=== PATIENT | male | born 1955 | race Caucasian/White ===

== ENCOUNTER 2019-11-25 12:53 | Emergency (ER) | payer BC, SELFPAY ==
--- NOTE | ~2019-11-25 | XR_ITS ---
XR chest 1V portable 11/25/2019 13:45 Indication: Chest pain. STEMI. Procedure: AP portable chest Comparison: 07/26/2015 Findings: Chronic elevation of the right diaphragm with right basilar atelectasis. Cardiomegaly. No a cute focal pneumonia, pulmonary edema, pleural effusion or pneumothorax. No acute osseous abnormality . Impression: 1: Cardiomegaly. 2: Chronic elevation of the right diaphragm with right basilar atelectasis. The Reviewed, dictated and finalized at location A. Impression: 1: Cardiomegaly. 2: Chronic elevation of the right diaphragm with right basilar atelectasis. sonia
--- NOTE | 2019-11-25 12:55 | ECG_ITS ---
Measurements Intervals [place] Rate: 50 P: 50 [place]: 208 QRS: 83 QRSD: 122 T: 4 QT: 465 QTc: 424 Interpretive Statements SINUS BRADYCARDIA INTRAVENTRICULAR CONDUCTION DELAY ST-T WAVE ABNORMALITY IN INFERIOR LEADS- CONSIDER ISCHEMIA ABNORMAL ECG Electronically Signed On 11-25-2019 18:12:55 CDT by Ari Gilliam D.O.
[2019-11-25 13:02] VITALS: BP 128/65; PULSE 58; RESP 20; TEMP 37; O2SAT 95
--- NOTE | 2019-11-25 13:05 | ECG_ITS ---
Measurements Intervals [place] Rate: 63 P: 40 [place]: 185 QRS: 104 QRSD: 118 T: 8 QT: 428 QTc: 439 Interpretive Statements ALTERNATE LEAD PLACEMENT: Posterior V1: V7, V2: V8, V3: V9, V4: V4, V5: V5, V6: V6 SINUS RHYTHM BORDERLINE AV CONDUCTION DELAY HIGH LATERAL ST ELEVATION- CONSIDER ACUTE INJURY RECIPROCAL ST DEPRESSION IN INFERIOR LEADS ABNORMAL ECG Electronically Signed On 11-25-2019 18:26:44 CDT by Ari Gilliam D.O.
--- NOTE | 2019-11-25 13:05 | ED.CHESTPAIN ---
HPI - Chest Pain General Chief Complaint: Chest Pain Stated Complaint: chest pain Time Seen by Provider: 11/25/19 13:04 Source: patient Mode of arrival: ambulatory Limitations: no limitations History of Present Illness HPI narrative: Patient is a 65-year-old gentleman with a history of hypertension who presents for evaluation of chest pain. 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 Patient returned home, chest pain persisted, patient generally started to feel very unwell, thus drove himself to the emergency department. No history of pain such as this in the past. Patient reports some left-sided chest pain, radiation to the shoulder, associated nausea, diaphoresis and weakness. No history of heart attack. Patient former smoker over 20 years ago. He has been compliant with his antihypertensives. He had a stress test many years ago which was normal. He denies fever, chills, cough or shortness of breath. No recent long car or air travel. Related Data Allergies Allergy/AdvReac Type Severity Reaction Status Date / Time sulfamethoxazole Allergy Severe FEVER & Verified 11/25/19 13:05 [place] trimethoprim Allergy Severe FEVER & Verified 11/25/19 13:05 CHILLS Review of Systems Review of Systems: Narrative: CONSTITUTIONAL: Denies fever, chills, or sweats. EYES: Denies visual changes, redness, or discharge. ENT: Denies rhinorrhea, congestion, sore throat, or otalgia. CARDIOVASCULAR: Reports chest pain RESPIRATORY: Denies cough or dyspnea. GASTROINTESTINAL: Denies abdominal pain, reports nausea GENITOURINARY: Denies dysuria or hematuria. SKIN: Denies rash or itching. MUSCULOSKELETAL: Denies back pain, joint pain, or myalgia. NEUROLOGIC: Denies headache, numbness, or weakness. [facility] Past Medical History Medical History (Updated 11/25/19 @ 14:32 by Janet Dai MD) Bilateral hydrocele Bilateral varicoceles Eczematous dermatitis Essential (primary) hypertension Rash Rash Surgical History Surgical History (Updated 03/01/19 @ 13:06 by Victorino Joe MD) Status post hip replacement Family History Family History Father Hypertension Mother Family history of diabetes mellitus in first degree relative Social History Social History Smoking status: Former smoker Smoking end date: 02/16/92 Alcohol intake: never Substance use: never Substance use type: does not use Gender identity (if verbalized by the patient): Male Exam Narrative: Exam Narrative: GENERAL: Awake, alert, conversant, uncomfortable appearing, mildly diaphoretic HEAD: Normocephalic, atraumatic. EYES: PERRLA and EOMI. ENT: Nares clear, no rhinorrhea or epistaxis. Mucous membranes moist. NECK: Supple. CHEST: No respiratory distress, breathing even and non labored HEART: Regular rate, sinus rhythm ABDOMEN:Non distended, non tender EXTREMITIES: Normal range of motion. No edema. No calf tenderness. SKIN: Pale, warm, no rash NEURO:No focal deficits. Alert and oriented x3 Course Vital Signs Vital signs: Vital Signs Temperature 37.0 C 11/25/19 13:02 Pulse Rate 58 L 11/25/19 13:02 Respiratory Rate 20 11/25/19 13:02 Blood Pressure 128/65 11/25/19 13:02 Pulse Oximetry 95 11/25/19 13:02 Temperature 36.7 C 11/25/19 13:40 Pulse Rate 68 11/25/19 14:24 Respiratory Rate 18 11/25/19 14:24 Blood Pressure 120/80 11/25/19 14:24 Pulse Oximetry 99 11/25/19 14:24 Transfer Transfered to: [facility] Transportation: Air medical Transfer rationale: Capacity not available, STEMI Accepting physician: MD DARREN MDM - Chest Pain MDM Narrative Medical decision making narrative: Patient presented for evaluation of chest pain. Patient was triaged, EKG performed patient found to have a posterior STEMI. Cardiology was present at
[2019-11-25] MEDS: ASPIRIN 81 MG CHEWABLE TABLET 324 MG PO (13:13)
[2019-11-25] MEDS: ONDANSETRON INJ 4 MG/2 ML VIAL IV PUSH (13:19)
[2019-11-25] MEDS: MORPHINE SULFATE (*CRX) 4 MG/ML INJ IV PUSH (13:19)
[2019-11-25 13:25] LABS: Basophils Absolute Auto 0.1 K/mm3 (0.0-0.1); Basophils Percent Auto 0.5 % (0.2-1.2); Eosinophils Absolute Auto 0.1 K/mm3 (0-0.3); Eosinophils Percent Auto 0.5 % (0-4.4); Hematocrit 46.7 % (42.0-52.0); Hemoglobin 15.7 g/dL (14.0-18.0); Immature Granulocyte Absolute 0.17 K/mm3 (0.00-0.031); Immature Granulocyte Percent A 1.3 % (0-0.5); Lymphocytes Absolute Auto 1.62 K/mm3 (0.9-3.2); Lymphocytes Percent Auto 12.2 % (18.3-44.2); Mean Corpuscular HGB Conc 33.6 g/dl (32-36); Mean Corpuscular Hemoglobin 30.7 pg (26-34); Mean Corpuscular Volume 91.4 fl (80-100); Monocytes Absolute Auto 1.1 K/mm3 (0.1-0.6); Monocytes Percent Auto 8.1 % (2.6-8.5); Neutrophils Absolute Auto 10.2 K/mm3 (1.3-6.7); Neutrophils Percent Auto 77.4 % (45.5-73.1); Platelet Count Result 221 k/mm3 (150-375); Red Blood Count 5.11 M/mm3 (4.6-6.20); White Blood Count 13.2 K/mm3 (4.5-10.0)
[2019-11-25 13:28] VITALS: O2SAT 94
[2019-11-25 13:31] VITALS: BP 109/58; PULSE 62; RESP 18; O2SAT 95
--- NOTE | 2019-11-25 13:35 | PC.NURSE ---
pt received 0.4mg nitro at 1310 for 8/10 cp, another 0.4mg nitro at 1315 for 5/10 cp, another 0.4mg nitro tab at 1320 for 5/10 cp. Bp 109/58 after 3rd nitro
[2019-11-25 13:37] LABS: Anion Gap 12 mmol/L (8-16); Blood Urea Nitrogen 31 mg/dL (9-20); Calcium 10.2 mg/dL (8.4-10.2); Carbon Dioxide 32 mmol/L (22-30); Chloride 98 mmol/L (98-107); Estimated Glomerular Filt Rate > 60; Glucose 131 mg/dL (75-110); Potassium 3.9 mmol/L (3.4-5.0); Sodium 142 mmol/L (137-145)
[2019-11-25 13:39] LABS: Prothrombin Time 12.7 Seconds (11.1-14.7)
[2019-11-25 13:40] VITALS: BP 117/63; PULSE 60; RESP 18; TEMP 36.7; O2SAT 97
[2019-11-25 13:40] LABS: Partial Thromboplastin Time 20.3 SECONDS (22.3-36.8)
--- NOTE | 2019-11-25 13:54 | ECG_ITS ---
Measurements Intervals [place] Rate: 61 P: 41 [place]: 184 QRS: 99 QRSD: 114 T: 16 QT: 436 QTc: 441 Interpretive Statements ALTERNATE LEAD PLACEMENT: Posterior V1: V7, V2: V8, V3: V9, V4: V4, V5: V5, V6: V6 SINUS RHYTHM ATRIAL AND VENTRICULAR PREMATURE COMPLEXES BORDERLINE AV CONDUCTION DELAY HIGH LATERAL ST ELEVATION- CONSIDER ACUTE INJRY RECIPROCAL ST DEPRESSION IN INFERIOR LEADS BASELINE ARTIFACT- I, II, AVR, AVL ABNORMAL ECG Electronically Signed On 11-25-2019 18:28:06 CDT by Ari Gilliam D.O.
[2019-11-25 14:03] LABS: NT Pro B Type Natriuretic Pept 98 PG/ML (5-100); Troponin I 0.073 ng/mL (0.000-0.034)
[2019-11-25 14:24] VITALS: BP 120/80; PULSE 68; RESP 18; O2SAT 99
== END 2019-11-25 14:30 | disposition short-term general hospital (02) ==
LOC: ANHED 13:34 → ANHICU 13:54 → ANHED 14:05
PROVIDERS: Emergency Provider Emergency Medicine; PCP Family Medicine
DX: I21.29 ST elevation (STEMI) myocardial infarction involving other sites (principal); I10 Essential (primary) hypertension; Z96.649 Presence of unspecified artificial hip joint; Z87.891 Personal history of nicotine dependence; I51.7 Cardiomegaly
CPT/HCPCS: 36415; 71045; 80048; 83880; 84484; 85025; 85610; 85730; 93005; 96374; 96375; 99291; A9270; J2250; J2270; J2405; J3010

== ENCOUNTER 2020-05-03 08:11 | Outpatient (CLI) | payer BC, SELFPAY | END 2020-05-03 08:12 | disposition home or self-care (01) | LOC: ANHCOVIDVC 08:11 | PROVIDERS: PCP Family Medicine | DX: Z23 Encounter for immunization (principal) | CPT/HCPCS: 0001A; 91300 ==

== ENCOUNTER 2020-05-24 08:04 | Outpatient (CLI) | payer BC, SELFPAY | END 2020-05-24 08:05 | disposition home or self-care (01) | LOC: ANHCOVIDVC 08:05 | PROVIDERS: PCP Family Medicine | DX: Z23 Encounter for immunization (principal) | CPT/HCPCS: 0002A; 91300 ==

== ENCOUNTER 2021-04-24 07:47 | Outpatient (CLI) | payer BC, SELFPAY ==
--- NOTE | 2021-04-30 15:39 | WPDSLEEPSTUD ---
Sleep Study Date of Study: 04/24/21 Ordering Provider: Alejandro Rojas, Interpreting Physician: Maryuri Velarde MD Sleep Study Type: CPAP Titration Height: 1.78 m Weight: 136.078 kg Body Mass Index: 43.0 Neck Circumference (inches): 19.5 [place]: 8 Reason for Sleep Study * 03/10/2021 home sleep test ordered through Dr Duncan showing mild obstructive sleep apnea with an apnea hypop[nadine indexof 6.2, lowest desaturation 87%, and a mean saturation of 92%. Sleep History Jassi Camacho is a 66 year old man with mild obstructive sleep apnea documented on a home sleep test March 10, 2021. He now presents for a CPAP titration. he does not awaken at night feeling short of breath. He rarely awakens at night with heartburn, belching or coughing. He occasionally snores. Occasionally this is loud enough that others complain about it. He does not have trouble sleeping with a cold. He does not wake up at night gasping for breath. He occasionally has breathing problems at night observed by others. He does not sweat excessively at night or notice his heart pounding or beating irregularly at night. he rarely falls asleep during the day, never involuntarily and never while driving. He does not have loss of muscle tone with strong emotion. He does not have daytime difficulties due to excessive sleepiness. He does not feel paralyzed on waking or falling asleep. He does not have vivid dream like scenes upon awakening or falling asleep. He does not feel afraid to go to sleep. He does not have nightmares. He rarely remembers his dreams. He does not have racing thoughts, feelings of sadness or depression. He rarely has anxiety. He rarely has muscular tension. He does not notice parts of his body jerking. He does not kick at night. He does not have crawling or aching feelings in his legs. He occasionally has leg pain at night. He does not have morning jaw pain. He does not grind his teeth during sleep. He rarely is bothered by pain during the day. He occasionally is awakened by pain at night, occasionally wakes up feeling stiff in the morning with sore achy muscles. He rarely wakes up with pain in the neck and spine. Normal bedtime is 7:30 p.m. taking 10 minutes to fall asleep waking 3-4 times at night to urinate. He is able to return to sleep within 5-10 minutes. His normal wake up time is 3:45 a.m.. On the weekends he also goes to bed at 7:30 p.m., wakes later at 5:30 a.m.. He does not take naps. A short nap is not refreshing. He feels adequately rested most mornings. He never has morning headaches. He rarely has daytime sleepiness. Habits: Caffeine 1 cup per day. [facility] Past Medical History Medical History Bilateral hydrocele Bilateral varicoceles CAD (coronary artery disease) Eczematous dermatitis Essential (primary) hypertension Hypertension with heart disease [place] (myocardial infarction) Rash Rash Surgical History Surgical History S/P coronary artery stent placement Status post hip replacement Family History Family History Father Hypertension Mother Family history of diabetes mellitus in first degree relative Social History Social History Smoking status: Former smoker Tobacco type: cigarettes Second hand tobacco smoke exposure: No Smoking end date: 02/16/92 Alcohol intake: never Substance use: never Substance use type: does not use Gender identity (if verbalized by the patient): Male Sexual Orientation (if Verbalized by the Patient): Straight or Heterosexual Medications Home Medications Medication Instructions Recorded Confirmed Type aspirin 81 mg tablet,delayed 81 mg PO DAILY 04/09/20 04/14/21 History release fluticasone propionate 50 1 spray INTRANASAL BID 04/09
[2021-04-30 16:56] VITALS: BMI 43.0
== END 2021-04-25 05:37 | disposition home or self-care (01) ==
LOC: ANHCSM 07:48
PROVIDERS: PCP Family Medicine; Visit Provider Internal Medicine Cardiovascular Disease
DX: G47.33 Obstructive sleep apnea (adult) (pediatric) (principal)
CPT/HCPCS: 95811

== ENCOUNTER 2022-05-08 07:12 | Outpatient (CLI) | payer BC, SELFPAY ==
--- NOTE | ~2022-05-08 | US_ITS ---
Limited Abdominal Sonogram: Real-time sonographic imaging of the right upper quadrant was performed. Clinical History: Abdominal pain Findings: The visualized liver appears normal with no evidence of mass lesion or bile duct dilatatio n. Main portal vein demonstrates normal direction of flow. The gallbladder is well distended, and linda ears normal with no evidence of gallstone or wall thickening. The common bile duct measures 5 mm. Th e visualized pancreas, aorta, and IVC are unremarkable. Impression: No significant abnormality seen. There is partial obscuration of portions of the liver and other orga ns due to patient body habitus. Reviewed, dictated and finalized at location M. Impression: No significant abnormality seen. There is partial obscuration of portions of th e liver and other organs due to patient body habitus.
== END 2022-05-08 07:13 | disposition home or self-care (01) ==
PROVIDERS: PCP Family Medicine; Visit Provider Physician Assistant
DX: R10.9 Unspecified abdominal pain (principal)
CPT/HCPCS: 76705

== ENCOUNTER 2022-05-15 07:02 | Outpatient (CLI) | payer BC, SELFPAY ==
--- NOTE | ~2022-05-15 | NM_ITS ---
EXAMINATION: NM hepatobiliary wo pharm DATE: 05/15/2022 10:19 INDICATION: Right upper quadrant abdominal pain. COMPARISON: Ultrasound 05/08/2022 TECHNIQUE: 5 mCi Tc-99m mebrofenin (Choletec) was administered intravenously. Scintigraphic images o f the abdomen were obtained for one hour. Then, the patient drank 8 oz Ensure, and imaging was contin ued for 60 minutes. FINDINGS: There is normal clearance of radiotracer from the blood pool. There is homogeneous tracer u ptake by the liver. Activity progresses to the bowel and gallbladder. Gallbladder ejection fraction (GBEF) was 32%. Note that with this technique, normal GBEF >= 33%. IMPRESSION: 1. Low gallbladder ejection fraction, consistent with gallbladder dysfunction and/or chronic cholecy stitis. Reviewed, dictated and finalized at location A. IMPRESSION: 1. Low gallbladder ejection fraction, consistent with gallbladder dysfunction and/or chronic cholecystitis.
== END 2022-05-15 07:03 | disposition home or self-care (01) ==
PROVIDERS: PCP Family Medicine; Visit Provider Physician Assistant
DX: R10.11 Right upper quadrant pain (principal)
CPT/HCPCS: 78226; A9537

== ENCOUNTER 2022-06-08 08:09 | Outpatient (CLI) | payer BC, SELFPAY | END 2022-06-08 08:10 | disposition home or self-care (01) | LOC: ANHSURGERY 08:15 | PROVIDERS: PCP Family Medicine; Visit Provider Surgery | DX: Z01.818 Encounter for other preprocedural examination (principal); K81.1 Chronic cholecystitis | CPT/HCPCS: 36415; 86850; 86900; 86901 ==

== ENCOUNTER 2022-06-12 01:09 | Day surgery (SDC) | payer BC, SELFPAY ==
[2022-06-05 08:32] VITALS: BMI 42.5
--- NOTE | 2022-06-05 08:45 | PC.NURSE ---
PRE-OP INSTRUCTIONS, PLEASE READ CAREFULLY Report to the Outpatient Waiting Room, entrance under the green pavilion located off [facility], at time _1000_ on date _06/12/22_. Planned Procedure Time: _1200_. Time changes happen often and if your time is changed the preop area will call you the afternoon before. - You and your visitor will be asked to self-screen and do not enter if you have any COVID symptoms. - A mask is optional within the hospital at this time. Patients may have clear liquids (water, carbonated beverages, clear teas, apple juice) until 3 hours prior to surgery (0900 AM) with a maximum of 20 ounces. - No food from midnight until time of surgery Take the following medications with a SIP of water the morning of surgery: _CARVEDILOL, NASAL SPRAY IF NEEDED _ DO NOT STOP ANY OF YOUR OTHER PRESCRIPTION MEDICATIONS PRIOR TO SURGERY ?EXCEPT THE FOLLOWING Medications to discontinue per DR. KAYE - _XARELTO 4 DAYS PRIOR TO SURGERY, Date to take last dose 06/07/22_ Please no make-up, nail montenegrin, hairspray, perfume, deodorant, or body powder the day of surgery. No jewelry (including any body piercings) or valuables the day of surgery, leave them at home. Please take a shower or bath the night before, or the morning of, surgery with an antibacterial soap. Wear comfortable, loose fitting clothing. - Jewelry must be removed prior to entering the operating room. Rings and piercings that are not removed may be cut off. - The hospital will not accept responsibility for valuables. - Please leave all valuables, including medications, at home the day of surgery. If you are going home after surgery, a licensed experienced truck driver must drive you home. - NO public transportation without another adult if you receive anesthesia. - We recommend that an adult stay with you for 24 hours following discharge. - We also recommend that you do not drive, make important decision, drink alcoholic beverages, or take any drugs that were not prescribed by your health care provider for at least 24 hours after your discharge time. Follow any additional instructions given to you from your surgeon. HIBICLENS SHOWER AM OF SURGERY If you or anyone in your household have experienced Covid symptoms in the past week, please notify your surgeon or the nurse liaison at the phone number below for possible testing. Telephone instructions given to _PATIENT_and asked if any additional questions and then verbalized understanding. Patient advised to call surgeon office or pre surgery nurse liaison [phone] if any additional questions.
[2022-06-12] VITALS (8 sets, daily range): BP systolic 92–134; BP diastolic 52–84; PULSE 69–110; RESP 15–26; TEMP 36.3; O2SAT 93–97; BMI 42.3
[2022-06-12] MEDS: ACETAMINOPHEN 500 MG TABLET 1000 MG PO (10:45)
[2022-06-12] MEDS: KETOROLAC 15 MG/ML VIAL (*BKC) IV PUSH (10:47)
--- NOTE | 2022-06-12 10:58 | WPDHPUPDATE1 ---
History and Physical Update Update Date/Time: 06/12/22 10:58 History and Physical has been reviewed, including an updated exam of the patient. There are NO changes in the patient's condition. Risks, benefits, and alternatives have been discussed and questions answered. Patient agrees to proceed with procedure.
[2022-06-12 11:15] LABS: Glucose Point of Care 81 mg/dl (65-105)
[2022-06-12] MEDS: LACTATED RINGERS 1,000 ML 30 ML IV CONT ×2 (11:55→13:33)
--- NOTE | 2022-06-12 11:55 | WPDANESEPPF ---
Anes - Initial Pre Proc Eval Procedure: Operation Date: 06/12/22 12:00 Proposed Procedures p Laparoscopic Cholecystectomy - Carolynn Barrera MD Date/Time: 06/12/22 11:55 Surgeon: Carolynn Barrear MD Pre Op Diagnosis: Chronic cholecystitis Patient Data Age: 67 Gender: M Height: 1.78 m Weight: 133.8 kg Last Vital Signs Temp 36.3 C L 06/12/22 09:48 Pulse 69 06/12/22 09:48 Resp 15 06/12/22 09:48 BP 115/56 L 06/12/22 09:48 Pulse Ox 97 06/12/22 09:48 O2 Del Method Room Air 06/12/22 09:48 Allergies Allergy/AdvReac Type Severity Reaction Status Date / Time sulfamethoxazole Allergy Severe FEVER & Verified 06/12/22 10:14 [place] trimethoprim Allergy Severe FEVER & Verified 06/12/22 10:14 [place]ILLS Home Medications Medication Instructions Recorded Confirmed Type aspirin 81 mg tablet,delayed 81 mg PO DAILY 04/09/20 06/05/22 History release fluticasone propionate 50 1 spray intranasal BID 04/09/20 06/05/22 History mcg/actuation nasal spray,suspension nitroglycerin 0.4 mg sublingual 0.4 mg sublingual Q5M PRN Chest 04/09/20 06/05/22 History tablet Pain semaglutide 1 mg/dose (2 mg/1.5 1 mg subcut WEEKLY 04/09/20 06/05/22 History mL) subcutaneous pen injector chlorthalidone 25 mg tablet See Rx Instructions .Route 10/07/20 06/05/22 Rx .COMPLEX #30 tabs bempedoic acid 180 mg tablet 180 mg PO DAILY #30 tabs 12/26/20 06/05/22 Rx (Nexletol) carboxymethylcellulose-citric acid 3 cap PO BID #180 caps 12/26/20 06/05/22 Rx 0.75 gram capsule (Plenity) carvedilol 25 mg tablet (Coreg) 25 mg PO Q12H #60 tabs 12/26/20 06/05/22 Rx rivaroxaban 2.5 mg tablet (Xarelto) 2.5 mg PO BID #60 tabs 12/26/20 06/12/22 Rx tamsulosin 0.4 mg capsule See Rx Instructions .Route 06/18/21 06/05/22 Rx .COMPLEX #180 caps Laboratory Tests 06/12/22 10:40 POC Capillary Glucose 81 mg/dl (65-105) Patient hx anesthesia problems: none Family hx anesthesia problems: none Results Review: All pre-operative results and documents have been reviewed as part of the pre-operative evaluation. [facility] Past Medical History Medical History Bilateral hydrocele Bilateral varicoceles CAD (coronary artery disease) Eczematous dermatitis Essential (primary) hypertension Hypertension with heart disease [place] (myocardial infarction) Rash Rash Surgical History Surgical History S/P coronary artery stent placement Status post hip replacement Family History Family History Father Hypertension Mother Family history of diabetes mellitus in first degree relative Unknown Diabetes mellitus Heart disease Hypertension Social History Social History Smoking packs per day: 2 Smoking cigarettes per day: 40.0 Years smoked: 23 Smoking pack-years: 46.00 Smoking status: Former smoker Tobacco type: cigarettes Second hand tobacco smoke exposure: No Smoking end date: 02/15/95 Alcohol intake: former Alcohol use details: STATES DRANK SOCIALLY QUIT 1995 Substance use: never Substance use type: does not use Living arrangements: other Additional living arrangements comments: LIVES WITH SIGNIFICANT OTHER Occupation/Education: occupation Gender identity (if verbalized by the patient): Male Sexual Orientation (if Verbalized by the Patient): Straight or Heterosexual Spiritual care concerns: No Anes - Eval Final PreProcedure Day of Procedure 06/12/22 11:55 Patient weight: morbidly obese Heart: regular rate and rhythm Lungs: decreased breath sounds Airway: Mallampati scale class III Neurological: alert and oriented Last oral intake: >/= 8 hours ASA classification: III Emergent: no Anesthetic plan: proceed Anesthesia type and rylan
[2022-06-12] MEDS: ceFAZolin 3 GM/D5W 100 ML 100 ML IVPB (12:14)
[2022-06-12] MEDS: BUPIVACAINE/EPINEPHRINE 0.25% 10 ML VIAL 30 ML INFILTRATE (12:54)
--- NOTE | 2022-06-12 13:00 | W.PM.PROC2 ---
Procedure Note - Detailed Date of Procedure 06/12/22 Pre-op Diagnosis Chronic cholecystitis Post-op Diagnosis Same Procedure Performed Laparoscopic cholecystectomy Surgeon Carolynn Barrera MD Anesthesia General Indications 67-year-old male presented to the office complaining of postprandial right upper quadrant abdominal pain associated with nausea and vomiting. Workup including imaging significant for chronic cholecystitis. Findings Cholecystitis with cholelithiasis Description of Procedure The patient was taken to the operating room placed in the supine position. After adequate induction of general anesthesia, the patient was prepped and draped in normal sterile fashion. A time-out was then performed to verify the patient's identity as well as the procedure being performed. I then made a 5 mm incision in the infraumbilical region. Through this, a Veress needle was placed into the peritoneal cavity and CO2 gas was then insufflated. After adequate pneumoperitoneum was achieved, the Veress needle was removed and a 5 mm optiview trocar was placed through this incision under direct visualization. I then placed the laparoscope through this trocar site and under direct visualization placed a further 12 mm subxiphoid port as well as 2 additional 5 mm ports in the right upper abdomen. The gallbladder was then identified and was noted to be moderately inflamed and distended. I was able to place a grasper at the dome of the gallbladder and this was retracted anterior and cephalad up over the liver. A 2nd retractor was then placed at the infundibulum and retracted laterally, this allowed visualization of the triangle of Calot. I then was able to visualize the cystic duct in its entirety from its proximal insertion into the gallbladder, to its distal junction with the common hepatic/common bile duct junction. At this point, I carefully skeletonized the proximal cystic duct with the [place] dissector. I then clipped and transected the proximal cystic duct. Next I visualized the cystic artery. Again the artery was skeletonized, clipped, and transected. I then used the Bovie cautery to take down the peritoneal attachments of the gallbladder off the liver bed. Once the gallbladder specimen was completely detached, an endo-pouch was placed through the 12 mm port site. I then placed the gallbladder specimen into the Endo pouch and removed the endo-pouch from the 12 mm port site. The specimen will now be sent to pathology for further review. I then copiously irrigated the right upper quadrant. Hemostasis was noted in the liver bed, the clips were noted to be in good position on both the cystic duct stump and the cystic artery stump. No other pathology was noted in the right upper quadrant. I then moved the laparoscope to the subxiphoid port. No iatrogenic injury or other pathology was noted in the lower abdomen. I then closed the 12 mm trocar site under direct visualization using the [place] cone and 0 Vicryl suture. At this point, the abdomen was desufflated and all ports removed. All port sites were then closed with 4.O Monocryl subcuticular sutures. Dermabond was placed on each incision. The patient tolerated the procedure well, was extubated in the operating room postoperative and will be transferred to the recovery room in stable condition Estimated Blood Loss 5 Drains No Packing No Pathology Yes Complications No immediate complications Condition Stable Disposition PACU [facility] Billing Surgery - Charge Forward: Surgery Billing
[2022-06-12 13:16] LABS: Glucose Point of Care 114 mg/dl (65-105)
[2022-06-12] MEDS: oxyCODONE HCL (*CRX) 5 MG TAB IR PO (14:26)
== END 2022-06-12 15:19 | disposition home or self-care (01) ==
PROVIDERS: PCP Family Medicine; Visit Provider Surgery
PROC: 0FT44ZZ Resection of Gallbladder, Percutaneous Endoscopic Approach (ICD-10-PCS; CPT 47562; principal; 2022-06-12 12:00)
DX: K81.1 Chronic cholecystitis (principal); I25.10 Atherosclerotic heart disease of native coronary artery without angina pectoris; I11.9 Hypertensive heart disease without heart failure; I25.2 Old myocardial infarction; Z79.82 Long term (current) use of aspirin; Z79.899 Other long term (current) drug therapy; Z79.01 Long term (current) use of anticoagulants; Z95.5 Presence of coronary angioplasty implant and graft; Z87.891 Personal history of nicotine dependence; E66.01 Morbid (severe) obesity due to excess calories; Z68.41 Body mass index [BMI] 40.0-44.9, adult
CPT/HCPCS: 47562; 82948; 88304; A9270; J0330; J0690; J1100; J1885; J2250; J2405; J2704; J3010; J7030; J7120

== ENCOUNTER 2023-10-22 09:49 | Outpatient (CLI) | payer BC, SELFPAY ==
--- NOTE | 2023-10-22 10:53 | ECG_ITS ---
Test Date: 2023-10-22 11:17:44 Measurements Intervals [place] Rate: 57 P: -31 MA: 203 QRS: 175 QRSD: 161 T: 30 QT: 470 QTc: 461 Interpretive Statements SINUS BRADYCARDIA RIGHT AXIS DEVIATION RIGHT BUNDLE BRANCH BLOCK ABNORMAL ECG No previous ECG available for comparison Electronically Signed On 10-22-2023 11:42:48 CDT by Ari Gilliam D.O.
[2023-10-22 12:01] LABS: Basophils Absolute Auto 0.1 K/mm3 (0.0-0.1); Basophils Percent Auto 0.6 % (0.2-1.2); Eosinophils Absolute Auto 0.2 K/mm3 (0-0.3); Eosinophils Percent Auto 1.5 % (0-4.4); Hematocrit 48.4 % (42.0-52.0); Immature Granulocyte Absolute 0.06 K/mm3 (0.00-0.031); Immature Granulocyte Percent A 0.6 % (0-0.5); Lymphocytes Absolute Auto 1.56 K/mm3 (0.9-3.2); Lymphocytes Percent Auto 15.5 % (18.3-44.2); Mean Corpuscular HGB Conc 33.1 g/dl (32-36); Mean Corpuscular Hemoglobin 30.8 pg (26-34); Mean Corpuscular Volume 93.1 fl (80-100); Mean Platelet Volume 10.5 fl (7.4-10.4); Monocytes Absolute Auto 0.9 K/mm3 (0.1-0.6); Monocytes Percent Auto 9.1 % (2.6-8.5); Neutrophils Absolute Auto 7.3 K/mm3 (1.3-6.7); Neutrophils Percent Auto 72.7 % (45.5-73.1); Platelet Count Result 191 k/mm3 (150-375); Red Cell Distribution Width 13.6 % (11.5-14.5); White Blood Count 10.1 K/mm3 (4.5-10.0)
[2023-10-22 12:10] LABS: Hemoglobin A1C 5.3 % (<5.7)
[2023-10-22 12:12] LABS: Urine Cotinine NEGATIVE
[2023-10-22 12:15] LABS: Anion Gap 7 mmol/L (4-12); Blood Urea Nitrogen 20 mg/dL (9-20); Carbon Dioxide 28 mmol/L (22-30); Chloride 100 mmol/L (98-107); Estimated Glomerular Filt Rate > 60; Glucose 99 mg/dL (65-110); Potassium 4.7 mmol/L (3.4-5.0); Sodium 135 mmol/L (137-145)
== END 2023-10-22 09:50 | disposition home or self-care (01) ==
PROVIDERS: PCP Family Medicine; Visit Provider Orthopaedic Surgery
DX: Z01.818 Encounter for other preprocedural examination (principal); M17.11 Unilateral primary osteoarthritis, right knee; R00.1 Bradycardia, unspecified; I45.19 Other right bundle-branch block
CPT/HCPCS: 80048; 80307; 82040; 83036; 85025; 87081; 93005

== ENCOUNTER 2023-11-11 00:49 | Day surgery (SDC) | payer BC, SELFPAY ==
[2023-10-22 10:03] VITALS: BMI 38.6
--- NOTE | 2023-10-22 10:38 | PC.NURSE ---
Report to the Outpatient Waiting Room, entrance under the green pavilion located off [facility], at time _6AM on date _11/11/23 . Planned Procedure Time: _7:30 AM .? Time changes happen often and if your time is changed the preop area will call you the afternoon before. - You and your visitor will be asked to self-screen and do not enter if you have any COVID symptoms. Please call surgeon if you need to reschedule. - A mask is optional within the hospital at this time. Patients may have clear liquids (water, carbonated beverages, clear teas, apple juice) until 3 hours prior to surgery( 4:30 AM) with a maximum of 20 ounces. - No food from midnight until time of surgery and no smoking - Infants may have breast milk until 4 hours before surgery, formula 6 hours prior to surgery. - Children will be allowed to drink immediately following surgery.? If applicable, please bring a bottle or sippy cup to assist with drinking. Juice, water, soda, and popsicles are readily available.? For infants on formula, please bring formula the day of surgery.? Pacifiers are allowed. Take only the following medications with a SIP of water on the morning of surgery: _NONE DO NOT STOP ANY OF YOUR OTHER PRESCRIPTION MEDICATIONS PRIOR TO SURGERY EXCEPT THE FOLLOWING Medications to discontinue per physician _HOLD XARELTO 2 DAYS PRE OP PER DR KAYE LAST DOSE 11/08/23. CONTINUE [address] KAYE/MARLIN BUT DO NOT TAKE MORNING OF SURGERY,HOLD ALEVE 7 DAYS PRE OP PER DR ISAAC LAST DOSE 11/03/23 MAY TAKE TYLENOL IF NEEDED FOR PAIN Please no make-up, nail macedonian, hairspray, perfume, deodorant, or body powder the day of surgery.? No jewelry (including any body piercings) or valuables the day of surgery, leave them at home.? Please take a shower or bath the night before, or the morning of, surgery with an antibacterial soap.? Wear comfortable, loose fitting clothing.? Children are encouraged to wear pajamas. - Jewelry must be removed prior to entering the operating room.? Rings and piercings that are not removed may be cut off. - The hospital will not accept responsibility for valuables.? - Please leave all valuables, including medications, at home the day of surgery. If you are going home after surgery, a licensed boat driver must drive you home.? - NO public transportation without another adult if you receive anesthesia. - We recommend that an adult stay with you for 24 hours following discharge. - We also recommend that you do not drive, make important decision, drink alcoholic beverages, or take any drugs that were not prescribed by your health care provider for at least 24 hours after your discharge time. For Pediatric surgeries, we recommend two adults accompany the child home. Follow any additional instructions given to you from your surgeon. VERBAL AND WRITTEN instructions given to __PT AND SO GERALD and asked if any additional questions and then verbalized understanding. Patient advised to call surgeon office or pre surgery nurse liaison [phone] if any additional questions.
[2023-10-22 10:54] VITALS: BP 116/71; PULSE 60; RESP 18; TEMP 37.1; O2SAT 97
--- NOTE | 2023-11-10 12:33 | PM.IMHP ---
H&P: HPI History of Present Illness Date/Time: 11/10/23 12:33 Chief Complaint: DJD right knee Narrative: 68-year-old male presents today for right total knee arthroplasty. He has been having symptoms in both of his knees for many years. He has been treating this with cortisone injections every 3 months. Patient is on Xarelto chronically and not a candidate for anti-inflammatories. He has been working hard for last 6-8 months to get his weight down so that his BMI is under 40 so that surgery can be offered to him. He has moderately severe medial compartment and severe patellofemoral osteoarthritis in the right knee. At this point patient feels he is ready proceed with total knee arthroplasty. Review of Systems Review of Systems: All systems reviewed & are unremarkable except as noted in HPI and below PMFSH Past Medical History Medical History (Updated 11/10/23 @ 12:37 by JORGE A Sullivan) Bilateral hydrocele Bilateral varicoceles CAD (coronary artery disease) Diastolic CHF Eczematous dermatitis Essential (primary) hypertension History of heart attack Hypertension with heart disease [place] (myocardial infarction) Rash Rash Surgical History Surgical History S/P coronary artery stent placement S/P laparoscopic cholecystectomy 06/12/22 Status post hip replacement Family History Family History Father Hypertension Mother Family history of diabetes mellitus in first degree relative Unknown Diabetes mellitus Heart disease Hypertension Social History Social History Smoking packs per day: 2 Smoking cigarettes per day: 40.0 Years smoked: 23 Smoking pack-years: 46.00 Smoking status: Former smoker Tobacco type: cigarettes Second hand tobacco smoke exposure: No Smoking end date: 02/15/95 Alcohol intake: former Alcohol use details: [place]IT 1995 Substance use: never Substance use type: does not use Do You Feel Safe in your Home?: Yes Lack of Transportation: No Lack of Food: Never True Current Housing: I Have Housing Concerned About Future Housing: No Difficulty Paying Gas/Electric Bills: No Difficulty Paying for Meds: No Currently Unemployed: No Education: High School Diploma/GED Difficulty w/ Childcare or Family Care: No Living arrangements: with family Additional living arrangements comments: LIVES WITH SIGNIFICANT OTHER Occupation/Education: occupation Additional occupation/education comments: [employer] Gender identity (if verbalized by the patient): Male Sexual Orientation (if Verbalized by the Patient): Straight or Heterosexual Spiritual care concerns: No Meds Home Medications and Allergies Home Medications Medication Instructions Recorded Confirmed Type nitroglycerin 0.4 mg sublingual 0.4 mg sublingual Q5M PRN Chest 04/09/20 10/25/23 History tablet Pain rivaroxaban 2.5 mg tablet (Xarelto) 2.5 mg PO BID #60 tabs 12/26/20 10/25/23 Rx tamsulosin 0.4 mg capsule See Rx Instructions .Route 06/18/21 10/25/23 Rx .COMPLEX #180 caps empagliflozin 10 mg tablet 10 mg PO DAILY 08/13/23 10/25/23 History (Jardiance) oxybutynin chloride 15 mg 15 mg PO DAILY 08/13/23 10/25/23 History tablet,extended release 24 hr sacubitril 97 mg-valsartan 103 mg 1 tablet PO BID 08/13/23 10/25/23 History tablet (Entresto) aspirin 81 mg tablet,delayed 81 mg PO DAILY 10/21/23 10/25/23 History release inclisiran 284 mg/1.5 mL 284 mg subcut [id number] 10/22/23 10/25/23 History subcutaneous syringe (Leqvio) naproxen sodium 220 mg capsule 440 mg PO PRN PRN Pain 10/22/23 10/25/23 History (Aleve) semaglutide 2 mg/dose (8 mg/3 mL) 2 mg subcut WEEKLY 10/22/23 10/25/23 History subcutaneous pen injector (Ozempic) Allergies Allergy/AdvRe
[2023-11-11] VITALS (15 sets, daily range): BP systolic 98–133; BP diastolic 53–76; PULSE 72–93; RESP 14–18; TEMP 36.2–36.8; O2SAT 91–100
--- NOTE | ~2023-11-11 | XR_ITS ---
EXAMINATION: [id number] DATE: 11/11/2023 11:37 INDICATION: Postoperative evaluation following right total knee arthroplasty. TECHNIQUE: Anteroposterior and lateral views of the right knee were obtained. COMPARISON: None. FINDINGS: Right total knee arthroplasty with patellar resurfacing appears well seated and in near anatomic alig nment. No fractures identified. Expected postoperative subcutaneous and intra-articular gas. IMPRESSION: 1. Right total knee arthroplasty, negative for postoperative purposes. Reviewed, dictated and finalized at location A.
[2023-11-11] MEDS: ACETAMINOPHEN 500 MG TABLET 1000 MG PO (06:23)
[2023-11-11] MEDS: LACTATED RINGERS 1,000 ML 30 ML IV CONT ×2 (06:25→11:33)
[2023-11-11] MEDS: TRANEXAMIC ACID 1,000MG/ISO100 1,000 MG/100 ML BAG 200 MG IVPB (06:25)
[2023-11-11 06:35] LABS: Glucose Point of Care 85 mg/dl (65-105)
[2023-11-11] MEDS: VANCOMYCIN 2,000 MG/NS 500 ML BAG 250 MG IVPB (06:45)
--- NOTE | 2023-11-11 07:17 | WPDANESEPPF ---
Anes - Initial Pre Proc Eval Procedure: Operation Date: 11/11/23 07:30 Proposed Procedures p Right Total Knee Arthroplasty - Tyshawn Mukherjee MD Date/Time: 11/11/23 07:17 Surgeon: Tyshawn Mukherjee MD Pre Op Diagnosis: O A Rt Knee Patient Data Age: 68 Gender: M Height: 1.78 m Weight: 122.6 kg Last Vital Signs Temp 97.8 F 11/11/23 06:57 Pulse 72 11/11/23 06:57 Resp 18 11/11/23 06:57 BP 127/60 11/11/23 06:57 Pulse Ox 98 11/11/23 06:57 O2 Del Method Room Air 11/11/23 06:57 Allergies Allergy/AdvReac Type Severity Reaction Status Date / Time sulfamethoxazole Allergy Severe FEVER & Verified 11/11/23 06:02 CHILLS trimethoprim Allergy Severe FEVER & Verified 11/11/23 06:02 CHILLS Home Medications Medication Instructions Recorded Confirmed Type nitroglycerin 0.4 mg sublingual 0.4 mg sublingual Q5M PRN Chest 04/09/20 10/25/23 History tablet Pain rivaroxaban 2.5 mg tablet (Xarelto) 2.5 mg PO BID #60 tabs 12/26/20 11/11/23 Rx tamsulosin 0.4 mg capsule See Rx Instructions .Route 06/18/21 11/11/23 Rx .COMPLEX #180 caps empagliflozin 10 mg tablet 10 mg PO DAILY 08/13/23 11/11/23 History (Jardiance) oxybutynin chloride 15 mg 15 mg PO DAILY 08/13/23 11/11/23 History tablet,extended release 24 hr sacubitril 97 mg-valsartan 103 mg 1 tablet PO BID 08/13/23 11/11/23 History tablet (Entresto) aspirin 81 mg tablet,delayed 81 mg PO DAILY 10/21/23 11/11/23 History release inclisiran 284 mg/1.5 mL 284 mg subcut [id number] 10/22/23 11/11/23 History subcutaneous syringe (Leqvio) naproxen sodium 220 mg capsule 440 mg PO PRN PRN Pain 10/22/23 11/11/23 History (Aleve) semaglutide 2 mg/dose (8 mg/3 mL) 2 mg subcut WEEKLY 10/22/23 11/11/23 History subcutaneous pen injector (Ozempic) Laboratory Tests 11/11/23 06:28 POC Capillary Glucose 85 mg/dl (65-105) Patient hx anesthesia problems: none Family hx anesthesia problems: none Results Review: All pre-operative results and documents have been reviewed as part of the pre-operative evaluation. [facility] Past Medical History Medical History (Updated 11/10/23 @ 12:37 by JORGE A Sullivan) Bilateral hydrocele Bilateral varicoceles CAD (coronary artery disease) Diastolic CHF Eczematous dermatitis Essential (primary) hypertension History of heart attack Hypertension with heart disease Old [place] (myocardial infarction) Rash Rash Surgical History Surgical History S/P coronary artery stent placement S/P laparoscopic cholecystectomy 06/12/22 Status post hip replacement Family History Family History Father Hypertension Mother Family history of diabetes mellitus in first degree relative Unknown Diabetes mellitus Heart disease Hypertension Social History Social History Smoking packs per day: 2 Smoking cigarettes per day: 40.0 Years smoked: 23 Smoking pack-years: 46.00 Smoking status: Former smoker Tobacco type: cigarettes Second hand tobacco smoke exposure: No Smoking end date: 02/15/95 Alcohol intake: former Alcohol use details: [place] SOCI[place] QUIT 1995 Substance use: never Substance use type: does not use Do You Feel Safe in your Home?: Yes Lack of Transportation: No Lack of Food: Never True Current Housing: I Have Housing Concerned About Future Housing: No Difficulty Paying Gas/Electric Bills: No Difficulty Paying for Meds: No Currently Unemployed: No Education: High School Diploma/GED Difficulty w/ Childcare or Family Care: No Living arrangements: with family Additional living arrangements comments: LIVES WITH SIGNIFICANT OTHER Occupation/Education: occupation 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
--- NOTE | 2023-11-11 07:18 | WPDHPUPDATE1 ---
History and Physical Update Update Date/Time: 11/11/23 07:18 History and Physical has been reviewed, including an updated exam of the patient. There are NO changes in the patient's condition. Risks, benefits, and alternatives have been discussed and questions answered. Patient agrees to proceed with procedure.
[2023-11-11] MEDS: ceFAZolin 3 GM/D5W 100 ML 100 ML IVPB (07:27)
[2023-11-11] MEDS: SODIUM CHLORIDE 0.9% IV 37.7 ML, MORPHINE SULFATE INJ (*CRX) 2 MG, ROPivacaine HCL 1% 2... INFILTRATE (08:13)
[2023-11-11] MEDS: ceFAZolin SODIUM 1 GM VIAL 2 GM IV PUSH (10:27)
[2023-11-11] MEDS: TRANEXAMIC ACID 1,000 MG/10 ML AMPUL 1000 MG IV PUSH (10:29)
[2023-11-11] MEDS: KETOROLAC 15 MG/ML VIAL (*BKC) IV PUSH ×3 (10:52→22:57)
--- NOTE | 2023-11-11 11:32 | W.PM.PROC2 ---
Procedure Note - Detailed Date of Procedure 11/11/23 Pre-op Diagnosis O A Rt Knee, obesity with BMI of 38.8 Post-op Diagnosis Same Procedure Performed Right total knee arthroplasty Surgeon Tyshawn Mukherjee MD Medical Research Assistant [place] Anesthesia General Description of Procedure Patient was brought to the operating room and general anesthesia was administered. The right knee was prepped draped usual fashion. Under anesthesia he still had about a 12 degree flexion contracture. He received 3 g of Ancef weight based vancomycin and 1 g of TXA. The There was extra difficulty with the procedure due to BMI of 38.8 this added an estimated 35-40 minutes to the procedure. Limb was exsanguinated and tourniquet elevated to 300 mmHg. A 7 or 8 in longitudinal incision was made and a median parapatellar arthrotomy utilized. Osteophytes removed from the patella. Partial infrapatellar fat pad excision carried out in the quadriceps synovectomy performed. Patella was scalloped the lateral facet with eburnated bone surface and his symptoms were patellofemoral to a large degree clinically and I felt that patellar resurfacing would be appropriate. Patellar thickness was 25 mm but with the insert type calipers the thickness of the lateral facet was only 15.5 mm. We resected 8.5 mm of bone from the patella with the resection just going to mm under the sclerotic lateral facet in the thin area. Bone flap was excellent. Checked cap applied. Next a guide radha was inserted on femoral canal after aspiration of canal contents using the 5 degree valgus cutting bushing 9 mm of bone removed the distal femur. This removed about a from lateral side. Next the tibia was cut. Exposure was difficult as he had a very stiff knee limiting anterior subluxation. He did not have a significant varus deformity so I specifically avoided medial capsule release from the tibia week could not utilize that for improved exposure. Initial tibial resection was made making this just under the low point of the sclerotic area in the posteromedial tibial plateau. He had an unusual tibial plateau where the articulation comprised approximately the posterior 2/3 of the tibial plateau and the anterior 1/3 was extra-articular. He had a very short patellar tendon making exposure difficult. I was able to be enucleated the Duckwater-Schlatter's ossicle from the deep surface of the patellar tendon which helped exposure. The PCL was recessed and the meniscal remnants were excised and we assessed the flexion gap at 90?. It measured 5 mm medially and 8 mm laterally at 90? with the spacer blocks and therefore additional 3 mm of bone removed from the tibial plateau alignment of the tibial cut was confirmed. It was colinear on the coronal plane and with a couple of degrees of posterior slope on the lateral plane since he had high degree of posterior slope preoperatively. With this accomplished the flexion gap was 8 mm medially and 11 mm laterally. The femoral sizing guide was applied to the distal femur set at 4? of external rotation which matched [place] line. Posterior referencing pinholes were placed. The size vanguard 70 AP cutting block was applied AP and chamfer cuts were made and this gave us a flush cut on the anterior cortex knee and the fit was very good. We trialed with the 10 CR insert which had ample room in flexion but the knee lacked still about 10 or 12? of extension. The tibia was sized to a size 75 which fit appropriately to posterolateral tibial plateau in the anteromedial tibial plateau at proper rotation this was punched. We trialed and the 11 insert gave appropriate soft tissue tension with 1 mm of lateral opening at 90? 1/2 medial opening at 90? but lacked about 12? of extension. An additional 2 mm of bone removed the distal femur chamfer cuts revisited. With the trial femoral component in place we removed posterior femoral osteophytes at this time. A conservative central posterior capsular release
[2023-11-11 11:39] LABS: Glucose Point of Care 133 mg/dl (65-105)
--- NOTE | 2023-11-11 11:43 | PM.OP ---
Procedure Note - Brief Procedure Note - Brief Date of procedure: 11/11/23 O A Rt Knee Procedure performed: Right total knee arthroplasty Surgeon: JORGE A Sullivan Findings: 68-year-old male who underwent right total knee arthroplasty on 11/10. I was involved in the procedure including positioning the patient on the OR table in 1st assisting through the time surgery. Total time spent was 3-1/2 hours
[2023-11-11] MEDS: ceFAZolin SODIUM 1 GM VIAL 3 GM (12:40)
--- NOTE | 2023-11-11 12:45 | ADMGEN ---
This patient, Jassi Camacho, was admitted to Medical Room 253-01. Patient/family oriented to hospital policies and general routines including ID bracelet, bed and alarms, visiting hours, pain management, procedures, bathroom and other care routines, personal items, smoking policy, room service/diet, and visiting hours. Information on how to activate the Rapid Response Team has been discussed. Patient/Family are encouraged to report perceived risks to care and to ask questions if they do not understand what they are told or what they should do.
[2023-11-11] MEDS: SODIUM CHLORIDE 0.9% IV 1,000 ML 125 ML IV CONT (13:24)
[2023-11-11] MEDS: ACETAMINOPHEN 325 MG TABLET 650 MG PO ×3 (13:24→21:23)
[2023-11-11] MEDS: oxyCODONE HCL (*CRX) 5 MG TAB IR PO ×3 (13:24→21:23)
[2023-11-11] MEDS: ceFAZolin 2 GM/D5W 50 ML 2 GM/50 ML BAG IVPB ×2 (14:03→22:58)
--- NOTE | 2023-11-11 14:53 | PM.IMCN ---
Assessment and Plan Assessment and plan (1) Right knee DJD: Qualifiers: Osteoarthritis type: primary Qualified Code(s): M17.11 - Unilateral primary osteoarthritis, right knee Code(s): M17.11 - Unilateral primary osteoarthritis, right knee Status: Acute Assessment and Plan: Underwent a right total knee arthroplasty with Yaz DAS on 11/11/23 - primary management through orthopedic team - ambulate with assistance and up to chair - use IS - neurovasc checks - see order for intervals - SCDs - analgesics and antiemetic p.r.n. - monitor labs in AM - CBC and BMP - bowel regimen: docusate/senna, polyethylene glycol - PT/OT (2) Diabetes: Qualifiers: Diabetes mellitus complication status: without complication Diabetes mellitus intermediate accountant insulin use: without custodial use Diabetes mellitus type: type 2 Qualified Code(s): E11.9 - Type 2 diabetes mellitus without complications Code(s): E11.9 - Type 2 diabetes mellitus without complications Status: Chronic Assessment and Plan: - hypoglycemia protocol - POC blood glucose ACHS - home medication: holding Ozempic 2 mg subQ weekly (NF), continue Jardiance 10 mg daily - correct regimen ordered - high dose TIDWM based off BMI - A1C 5.3% on 10/22/2023 (3) Essential (primary) hypertension: Code(s): I10 - Essential (primary) hypertension Status: Chronic Assessment and Plan: - chronic, currently 133/76 - continue home medications: Entresto 97-103 mg b.i.d. - monitor Plan Diet: Diabetic GI Prophylaxis: Not currently indicated DVT Prophylaxis: SCDs, start Eliquis on 11/11 Lines: Peripheral Code Status: Full code HPI Date of Consult Consult date: 11/11/23 Requesting Physician: Tyshawn Mukherjee MD Primary Care Provider: Victorino Joe MD Consult Narrative Reason for consult: Medical Managment Narrative: 68 y/o M presents here with severe right knee pain with PMH of CAD w/stent placement, diastolic CHF, HTN, sleep apnea, and OH. The patient presents here for a total right knee arthroplasty. Prior to surgery he reported bilateral knee pain for the past 10 years. He has undergone conservative measures including weight loss and cortisone injections. Last injection on April of 2023 with no relief. Patient reports 30 lb of weight loss (Feb -> present day) without improvement. Imaging has previously shown moderately severe medial compartment and severe patellofemoral osteoarthritis of the right knee. Given interference with ambulating/stairs and currently works construction, patient decided to move forward with surgical management. Postoperatively he is reporting no N/V and improvement pain. Denies any recent changes to his medical history or medications. Hx of sleep apnea, intolerant of CPAP. Preop VS: 98.8? F, HR 60, RR 18, 116/71, and 97% on RA. Preop workup: No leukocytosis, no anemia, no significant electrolyte derangements, creatinine 0.7 and GFR >60, and A1c 5.3%. Review of Systems Review of Systems: All systems reviewed & are unremarkable except as noted in HPI and below PMFSH Past Medical History Medical History Bilateral hydrocele Bilateral varicoceles BPH (benign prostatic hyperplasia) CAD (coronary artery disease) Chronic anticoagulation Diabetes Diastolic CHF Eczematous dermatitis Essential (primary) hypertension History of heart attack Hypertension with heart disease Obstructive sleep apnea CPAP intolerant Psoriasis Surgical History Surgical History History of shoulder surgery (2020) right History of total left hip arthroplasty S/P coronary artery stent placement (11/2019) x2 S/P laparoscopic cholecystectomy 06/12/22 Family History Family History Father Hypertension Heart di
[2023-11-11 17:10] LABS: Glucose Point of Care 199 mg/dl (65-105)
[2023-11-11] MEDS: VANCOMYCIN 1,000 MG/NS 250 ML 1,000 MG/250 ML BAG 250 MG IVPB (17:31)
[2023-11-11] MEDS: SACUBITRIL/VALSARTAN 97-103 MG TABLET 1 TAB PO (17:32)
[2023-11-11] MEDS: SENNA/DOCUSATE SODIUM TABLET 2 TAB PO (17:32)
[2023-11-11] MEDS: FAMOTIDINE 20 MG TABLET PO (21:23)
[2023-11-11 21:52] LABS: Glucose Point of Care 147 mg/dl (65-105)
[2023-11-12 01:15] VITALS: BP 107/49; PULSE 71; RESP 18; TEMP 36.5; O2SAT 93
[2023-11-12] MEDS: oxyCODONE HCL (*CRX) 5 MG TAB IR PO ×4 (01:30→11:02)
[2023-11-12] MEDS: ACETAMINOPHEN 325 MG TABLET 650 MG PO ×3 (01:30→10:06)
[2023-11-12 04:14] VITALS: BP 117/64; PULSE 75; RESP 18; TEMP 36.9; O2SAT 98
[2023-11-12 05:45] VITALS: BP 117/53; PULSE 72; RESP 20; TEMP 36.6; O2SAT 95
[2023-11-12 05:54] LABS: Basophils Absolute Auto 0.1 K/mm3 (0.0-0.1); Basophils Percent Auto 0.4 % (0.2-1.2); Eosinophils Percent Auto 0.2 % (0-4.4); Hematocrit 42.3 % (42.0-52.0); Immature Granulocyte Absolute 0.12 K/mm3 (0.00-0.031); Immature Granulocyte Percent A 0.6 % (0-0.5); Lymphocytes Absolute Auto 0.77 K/mm3 (0.9-3.2); Mean Corpuscular HGB Conc 33.1 g/dl (32-36); Mean Corpuscular Hemoglobin 31.4 pg (26-34); Mean Corpuscular Volume 94.8 fl (80-100); Mean Platelet Volume 10.7 fl (7.4-10.4); Monocytes Absolute Auto 1.9 K/mm3 (0.1-0.6); Neutrophils Absolute Auto 16.3 K/mm3 (1.3-6.7); Neutrophils Percent Auto 84.8 % (45.5-73.1); Platelet Count Result 157 k/mm3 (150-375); Red Blood Count 4.46 M/mm3 (4.6-6.20); Red Cell Distribution Width 13.9 % (11.5-14.5); White Blood Count 19.2 K/mm3 (4.5-10.0)
[2023-11-12] MEDS: VANCOMYCIN 1,000 MG/NS 250 ML 1,000 MG/250 ML BAG 250 MG IVPB (05:58)
[2023-11-12 06:03] LABS: Anion Gap 5 mmol/L (4-12); Blood Urea Nitrogen 24 mg/dL (9-20); Calcium 8.2 mg/dL (8.4-10.2); Carbon Dioxide 27 mmol/L (22-30); Chloride 102 mmol/L (98-107); Estimated CRCL calculation 104 ml/min; Estimated Glomerular Filt Rate > 60; Glucose 109 mg/dL (65-110); Potassium 4.1 mmol/L (3.4-5.0); Sodium 134 mmol/L (137-145)
[2023-11-12] MEDS: ceFAZolin 2 GM/D5W 50 ML 2 GM/50 ML BAG IVPB (07:09)
[2023-11-12 07:48] LABS: Glucose Point of Care 114 mg/dl (65-105)
--- NOTE | 2023-11-12 08:02 | PM.PNORT ---
Subjective Subjective Date/Time Seen: 11/12/23 08:02 Interval history: Postop day 1 patient is alert. He is afebrile vital signs are stable. Pain is well controlled. Dressing is intact and dry. Patient was up walking yesterday with physical therapy in the hallways. He is comfortable and is happy with the way his knee is feeling. He is able do a straight leg raise. Neurovascularly he is intact. Morning labs are noted. Overall patient is doing very well. Plan have him work with Physical therapy this morning and if he continues to be comfortable he will be discharged home later this morning. Objective Data Vital Signs Vital Signs: Vital Signs - 24 hr 11/11/23 11:33 11/11/23 11:55 11/11/23 12:00 Temperature 97.9 F Pulse Rate 93 84 Respiratory Rate 16 16 Blood Pressure 98/53 L 118/73 Pulse Oximetry 94 100 96 Oxygen Delivery Simple Face Mask Simple Face Mask Simple Face Mask Oxygen Flow Rate 10 6 6 11/11/23 12:10 11/11/23 12:15 11/11/23 11:45 Temperature Pulse Rate 80 80 Respiratory Rate 14 14 Blood Pressure 129/67 120/64 Pulse Oximetry 100 93 100 Oxygen Delivery Room Air Room Air Simple Face Mask Oxygen Flow Rate 10 11/11/23 12:30 11/11/23 12:45 11/11/23 14:15 Temperature Pulse Rate 77 79 Respiratory Rate 16 16 Blood Pressure 132/73 133/76 Pulse Oximetry 92 93 Oxygen Delivery Room Air Room Air Room Air Oxygen Flow Rate 11/11/23 14:42 11/11/23 13:30 11/11/23 13:00 Temperature 98.1 F Pulse Rate 79 Respiratory Rate 18 Blood Pressure 127/64 Pulse Oximetry 91 Oxygen Delivery Room Air Room Air Oxygen Flow Rate 11/11/23 13:15 11/11/23 13:45 11/11/23 14:45 Temperature 98.1 F 98.1 F 98.2 F Pulse Rate 75 76 84 Respiratory Rate 18 18 18 Blood Pressure 113/59 L 113/64 119/62 Pulse Oximetry 94 92 98 Oxygen Delivery Oxygen Flow Rate 11/11/23 18:32 11/11/23 22:09 11/12/23 01:15 Temperature 97.1 F L 97.5 F L 97.7 F Pulse Rate 80 75 71 Respiratory Rate 16 18 18 Blood Pressure 124/73 110/60 107/49 L Pulse Oximetry 97 91 93 Oxygen Delivery Oxygen Flow Rate 11/12/23 04:14 11/12/23 05:45 Temperature 98.5 F 98 F Pulse Rate 75 72 Respiratory Rate 18 20 Blood Pressure 117/64 117/53 L Pulse Oximetry 98 95 Oxygen Delivery Oxygen Flow Rate Intake/Output Intake/Output: Intake & Output 11/09/23 11/10/23 11/11/23 11/12/23 23:59 23:59 23:59 23:59 Intake Total 2470 Output Total 350 700 Balance 2120 -700 Meds/Results Medications: Active Medications Generic Name Dose Route Start Last Admin Trade Name Freq PRN Reason Stop Dose Admin Acetaminophen 650 mg 11/11/23 14:00 11/12/23 05:58 Acetaminophen 325 Mg Tablet PO 650 mg Q4H MARI Administration Apixaban 2.5 mg 11/12/23 09:00 Apixaban 2.5 Mg Tablet PO 11/23/23 21:01 Q12HR MARI Aspirin 81 mg 11/12/23 09:00 Aspirin 81 Mg Enteric Tablet PO DAILY MARI Dextrose 12.5 gm 11/11/23 15:06 Dextrose 50% 25 Gm/50 Ml Syringe IV PUSH PRN PRN Hypoglycemia Protocol Diphenhydramine HCl 25 mg 11/11/23 12:47 Diphenhydramine Hcl Inj 50 Mg/Ml Vial IV PUSH Q6H PRN Itching Doxycycline Hyclate 100 mg 11/12/23 09:00 Doxycycline Hyclate 100 Mg Tablet PO Q12HR MARI Empagliflozin 10 mg 11/12/23 09:00 Empagliflozin 10 Mg Tablet PO DAILY MARI Famotidine 20 mg 11/11/23 21:00 11/11/23 21:23 Famotidine 20 Mg Tablet PO 20 mg Q12HR MARI Administration Glucagon 1 mg 11/11/23 15:06 Glucagon For Inj 1 Mg Vial IM PRN PRN Hypoglycemia Protocol Glucose 15 gm 11/11/23 15:06 Glucose Oral Gel 15 Gm Of Glucse In 37.5 Gm Tube PO PRN PRN Hypoglycemia Protocol Dextrose 1,000 mls @ 100 mls/hr 11/11/23 15:06 Dextrose 5% 1,000 Ml IVPB PRN PRN Hypoglycemia Protocol Insulin Aspart 4 - 8 units 11/11/23 17:00 11/12/23 07:50 Insulin Aspart (*Bk)
--- NOTE | 2023-11-12 08:06 | PM.DS ---
DS: Admitting Diagnosis Discharge Date 11/11 Admitting Diagnosis Right knee DJD DS: Discharge Diagnosis Discharge Diagnosis (1) Right knee DJD: Qualifiers: Osteoarthritis type: primary Qualified Code(s): M17.11 - Unilateral primary osteoarthritis, right knee Code(s): M17.11 - Unilateral primary osteoarthritis, right knee Status: Acute DS: Summary Hospital Course Hospital Course: 68-year-old male who underwent right total knee arthroplasty on 11/10. Underwent the procedure without complications. Postoperatively he has been afebrile vital signs are stable. Neurovascularly is intact. His dressing is dry and intact. Patient was up walking with physical therapy the day of surgery and is comfortable. Pain is well controlled with scheduled Tylenol every 4 hours as well as oxycodone every 4 hours. He is on oxycodone 5 mg. He is on Eliquis for DVT prophylaxis for 2 weeks and then he will resume his low-dose Xarelto. He will continue to maintain his baby aspirin. Patient be discharged home on 11/11. He was advised to keep leg elevated home prevent swelling but do his exercises on an hourly basis. He has outpatient therapy starting on Wednesday. He will go home with a 1 week course of doxycycline. He will also go home with Senokot and MiraLax for constipation. Patient's labs on postop day 1 were all within normal limits. Patient was advised any questions or concerns he is to call the office otherwise we will see him at his appointments Time Spent with Patient Time attestation: Total time spent providing and/or coordinating discharge services: DS: Data Data Completed and Pending Labs on day of discharge: Labs from last 24 hours 11/12/23 11/12/23 11/11/23 07:33 05:24 20:05 WBC 19.2 H RBC 4.46 L Hgb 14.0 Hct 42.3 MCV 94.8 MCH 31.4 MCHC 33.1 RDW 13.9 Plt Count 157 MPV 10.7 H Immature Gran % (Auto) 0.6 H Neut % (Auto) 84.8 H Lymph % (Auto) 4.0 L [place] % (Auto) 10.0 H Eos % (Auto) 0.2 Baso % (Auto) 0.4 Lymph # (Auto) 0.77 L [place] # (Auto) 1.9 H Eos # (Auto) 0.0 Baso # (Auto) 0.1 Abs Immat Gran (auto) 0.12 H Absolute Neuts (auto) 16.3 H Absolute Nucleated RBC 0.000 Nucleated RBC % 0.0 Sodium 134 L Potassium 4.1 Chloride 102 Carbon Dioxide 27 Anion Gap 5 BUN 24 H Creatinine 0.80 Estim Creat Clear Calc 104 Estimated GFR > 60 Glucose 109 POC Capillary Glucose 114 H 147 H Calcium 8.2 L 11/11/23 11/11/23 17:07 11:36 WBC RBC Hgb Hct MCV MCH MCHC RDW Plt Count MPV Immature Gran % (Auto) Neut % (Auto) Lymph % (Auto) [place] % (Auto) Eos % (Auto) Baso % (Auto) Lymph # (Auto) [place] # (Auto) Eos # (Auto) Baso # (Auto) Abs Immat Gran (auto) Absolute Neuts (auto) Absolute Nucleated RBC Nucleated RBC % Sodium Potassium Chloride Carbon Dioxide Anion Gap BUN Creatinine Estim Creat Clear Calc Estimated GFR Glucose POC Capillary Glucose 199 H 133 H Calcium Discharge Plan Discharge Patient Disposition: Home, Self-Care Discharge Instructions: CHAVA ISAAC M.D [facility] [address] [place] [address] [address] [place] [address] POST-OPERATIVE DISCHARGE INSTRUCTIONS TOTAL KNEE ARTHROPLASTY 1. When resting, do not rest in the chair.When resting, lie on your back, with back flat on the couch or bed, with leg elevated above heart to minimize swelling. You may put a pillow under your head. . Significant swelling could indicate a blood clot and if this occurs call the office (or go to the ER) to have a venous ultrasound. Therefore, do not rest in a chair. 2. At least five times a day spend several minutes stretching your knee into flexion while sitting in the chair and also stretching your knee out straight The abilities to bend your knee fully and straighten your kne
[2023-11-12] MEDS: SENNA/DOCUSATE SODIUM TABLET 2 TAB PO (08:09)
[2023-11-12] MEDS: ASPIRIN 81 MG ENTERIC TABLET PO (08:09)
[2023-11-12] MEDS: SACUBITRIL/VALSARTAN 97-103 MG TABLET 1 TAB PO (08:09)
[2023-11-12] MEDS: oxyBUTYnin CHLORIDE XL 5 MG TAB.ER.24 15 MG PO (08:10)
[2023-11-12] MEDS: DOXYCYCLINE HYCLATE 100 MG TABLET PO (08:10)
[2023-11-12] MEDS: TAMSULOSIN HCL 0.4 MG CAPSULE 0.8 MG BY MOUTH (08:10)
[2023-11-12] MEDS: EMPAGLIFLOZIN 10 MG TABLET PO (08:10)
[2023-11-12] MEDS: FAMOTIDINE 20 MG TABLET PO (08:10)
[2023-11-12] MEDS: APIXABAN 2.5 MG TABLET PO (08:10)
[2023-11-12] MEDS: polyethylene glycoL 3350 17 GM POWD.PACK PO (08:11)
--- NOTE | 2023-11-12 10:13 | PM.IMPN ---
Progress Note: A&P Assessment and Plan (1) Right knee DJD: Qualifiers: Osteoarthritis type: primary Qualified Code(s): M17.11 - Unilateral primary osteoarthritis, right knee Code(s): M17.11 - Unilateral primary osteoarthritis, right knee Status: Acute (2) Diabetes: Qualifiers: Diabetes mellitus type: type 2 Diabetes mellitus fci insulin use: without fci use Diabetes mellitus complication status: without complication Qualified Code(s): E11.9 - Type 2 diabetes mellitus without complications Code(s): E11.9 - Type 2 diabetes mellitus without complications Status: Chronic (3) Essential (primary) hypertension: Code(s): I10 - Essential (primary) hypertension Status: Chronic Plan patient had rt knee arthroplasty on 11/10 the procedure was uneventful and today patient is participating PT and stats he is feeling much better and his knee pain has resolved. today patien was seen by his orthopedic and patient is clinically stable and patient being discharge. Subjective Date/time seen: 11/12/23 10:13 Interval history: H&P HPI The patient presents here for a total right knee arthroplasty. Prior to surgery he reported bilateral knee pain for the past 10 years. He has undergone conservative measures including weight loss and cortisone injections. Last injection on April of 2023 with no relief. Patient reports 30 lb of weight loss (Feb -> present day) without improvement. Imaging has previously shown moderately severe medial compartment and severe patellofemoral osteoarthritis of the right knee. Given interference with ambulating/stairs and currently works construction, patient decided to move forward with surgical management. Postoperatively he is reporting no N/V and improvement pain. Denies any recent changes to his medical history or medications. Hx of sleep apnea, intolerant of CPAP. patient had rt knee arthroplasty on 11/10 the procedure was uneventful and today patient is participating PT and stats he is feeling much better and his knee pain has resolved. Review of Systems Review of Systems: All systems reviewed & are unremarkable except as noted in HPI and below Exam Narrative: Patient is comfortable, NAD HEENT: eyes are clear and none icteric LUNGS:CTA HEART: RR S1S2 ABD: BS+, Soft and nontender Lower extremities: no edema SKIN: nonjaundiced Neuro: grossly intact. Objective Data Vital Signs Vital Signs: Vital Signs - 24 hr 11/11/23 11:33 11/11/23 11:55 11/11/23 12:00 Temperature 36.6 C Pulse Rate 93 84 Respiratory Rate 16 16 Blood Pressure 98/53 L 118/73 Pulse Oximetry 94 100 96 Oxygen Delivery Simple Face Mask Simple Face Mask Simple Face Mask Oxygen Flow Rate 10 6 6 11/11/23 12:10 11/11/23 12:15 11/11/23 11:45 Temperature Pulse Rate 80 80 Respiratory Rate 14 14 Blood Pressure 129/67 120/64 Pulse Oximetry 100 93 100 Oxygen Delivery Room Air Room Air Simple Face Mask Oxygen Flow Rate 10 11/11/23 12:30 11/11/23 12:45 11/11/23 14:15 Temperature Pulse Rate 77 79 Respiratory Rate 16 16 Blood Pressure 132/73 133/76 Pulse Oximetry 92 93 Oxygen Delivery Room Air Room Air Room Air Oxygen Flow Rate 11/11/23 14:42 11/11/23 13:30 11/11/23 13:00 Temperature 36.7 C Pulse Rate 79 Respiratory Rate 18 Blood Pressure 127/64 Pulse Oximetry 91 Oxygen Delivery Room Air Room Air Oxygen Flow Rate 11/11/23 13:15 11/11/23 13:45 11/11/23 14:45 Temperature 36.7 C 36.7 C 36.8 C Pulse Rate 75 76 84 Respiratory Rate 18 18 18 Blood Pressure 113/59 L 113/64 119/62 Pulse Oximetry 94 92 98 Oxygen Delivery Oxygen Flow Rate 11/11/23 18:32 11/11/23 22:09 11/12/23 01:15 Temperature 36.2 C L 36.4 C L 36.5 C Pulse Rate 80 75 71 Respiratory Rate 16 18 18 Blood Pressure 124/73 110/60 107/49 L Pulse Oximetry 97 91 93 Oxygen Delivery Oxygen Flow Rate 11/12/23 04
[2023-11-12] MEDS: INFLUENZA VACCINE HIGH DOSE (>64) 180 MCG/0.5 ML SYRINGE IM (11:02)
== END 2023-11-12 11:14 | disposition home or self-care (01) ==
LOC: ANHSURGERY 05:46 → ANH2MED 12:50
PROVIDERS: Physician Assistant Surgical; PCP Family Medicine; Visit Provider Orthopaedic Surgery
PROC: (CPT 27447; principal; 2023-11-11 07:30)
DX: M17.11 Unilateral primary osteoarthritis, right knee (principal); E66.9 Obesity, unspecified; Z68.38 Body mass index [BMI] 38.0-38.9, adult; Z23 Encounter for immunization; I25.10 Atherosclerotic heart disease of native coronary artery without angina pectoris; I50.30 Unspecified diastolic (congestive) heart failure; E11.9 Type 2 diabetes mellitus without complications; I11.0 Hypertensive heart disease with heart failure; Z96.649 Presence of unspecified artificial hip joint; Z87.891 Personal history of nicotine dependence
CPT/HCPCS: 27447; 36415; 73560; 80048; 82948; 85025; 86850; 86900; 86901; 90471; 90662; 97110; 97116; 97161; 97165; 97530; 97535; A9270; C1713; C1776; G0008; J0171; J0690; J1100; J1170; J1885; J2250; J2270; J2371; J2405; J2704; J2795; J3010; J3370; J7030; J7120

== ENCOUNTER 2023-12-14 12:13 | Outpatient (CLI) | payer BC, SELFPAY ==
--- NOTE | ~2023-12-14 | US_ITS ---
EXAMINATION: US venous doppler [facility] DATE: 12/14/2023 13:12 INDICATION: Localized edema. Lower limb pain and swelling. TECHNIQUE: Grayscale ultrasound images without and with compression and Doppler ultrasound images of the bilateral lower extremity veins were obtained. COMPARISON: Ultrasound 06/08/2013 FINDINGS: The visualized portions of right common femoral vein, profunda (deep) femoral vein, femoral vein, pop liteal vein, peroneal veins, posterior tibial veins, and greater saphenous vein outflow are patent. The visualized portions of left common femoral vein, profunda femoral vein, femoral vein, popliteal v ein, peroneal veins, posterior tibial veins, and greater saphenous vein outflow are patent. IMPRESSION: 1. No deep venous thrombosis. Reviewed, dictated and finalized at location B.
== END 2023-12-14 12:14 | disposition home or self-care (01) ==
PROVIDERS: PCP Family Medicine; Visit Provider Physician Assistant Surgical
DX: R60.0 Localized edema (principal)
CPT/HCPCS: 93970

== ENCOUNTER 2024-07-12 12:13 | Outpatient (CLI) | payer BC, SELFPAY ==
--- NOTE | ~2024-07-12 | MR_ITS ---
MRI of the lumbar spine Clinical History: Back pain Technique: Axial T2-weighted images, and sagittal T1-weighted, T2-weighted, and and T2 fat-sat images were acquired. Findings: No fracture or sublocation seen in lumbar spine. Vertebral bodies maintain normal height an d alignment. No bone marrow signal abnormality seen. At L1-L2, there is mild disc bulge with moderate to advanced facet arthropathy. There is moderate donna tral canal stenosis/thecal sac compression. There is moderate left neural foraminal narrowing and mil d right neural foraminal narrowing. At L2-L3, there is disc bulge and advanced facet arthropathy. There is moderate to advanced spinal ca nal stenosis/thecal sac compression. There is advanced bilateral neural foraminal, otherwise. At L3-L4, there is disc bulge and severe facet arthropathy, severe spinal canal stenosis/thecal sac c ompression. There is severe bilateral neural foraminal narrowing. At L4-L5, there is disc bulge and severe facet arthropathy, with severe spinal canal stenosis/thecal sac compression. There is severe bilateral neural foraminal narrowing. L5-S1, there is disc bulge and severe facet arthropathy. There is moderate central canal stenosis. Th ere is severe bilateral neural foraminal comprise. Paravertebral soft tissues are unremarkable. Impression: Severe degenerative spondylosis throughout the lumbar spine, with multilevel severe spinal canal sten osis and multilevel severe bilateral neural foraminal narrowing. Reviewed, dictated and finalized at [facility]. Impression: Severe degenerative spondylosis throughout the lumbar spine, with multilevel se pedro spinal canal stenosis and multilevel severe bilateral neural foraminal maycol rowing.
== END 2024-07-12 12:14 | disposition home or self-care (01) ==
LOC: MICIMG 12:13
PROVIDERS: PCP Family Medicine; Visit Provider Family Medicine
DX: M47.816 Spondylosis without myelopathy or radiculopathy, lumbar region (principal); M48.061 Spinal stenosis, lumbar region without neurogenic claudication; M48.07 Spinal stenosis, lumbosacral region
CPT/HCPCS: 72148

== ENCOUNTER 2024-12-28 00:58 | Day surgery (SDC) | payer BC, SELFPAY ==
[2024-12-18 11:43] VITALS: BMI 41.6
--- NOTE | 2024-12-18 11:57 | SUR.PREOP ---
Spoke with patient in regards to holding his Plavix for his colonoscopy. Patient verbalized understanding that last dose will be 12/20/2024.
--- OUTSIDE RECORDS SUMMARY | 2024-12-28 01:01 | XMS_ITS | Clinical Summary ---
Author Organization [facility] Address [address] [place] [address] Phone Care Team Providers Care Training And Development Project Leader Name Role Phone Victorino Joe MD Primary Care Provider [phone] Allergies Active Allergy Reactions Criticality Noted Date Comments Sulfamethoxazole-Trimethoprim Fever Low 2017 Medications aspirin (GAETANO) 325 mg tablet Take 325 mg by mouth daily. Active OTHER Take 2 Capsules by mouth 2 times daily Provider please include Medication name, dose, route and frequency Thyro-21 appetite suppressant [place] 21. Active chlorthalidone (HYGROTON) 25 mg tablet Take 25 mg by mouth daily. Active diclofenac sodium (VOLTAREN) 75 mg Tablet, Delayed Release (E.C.) Take 75 mg by mouth 2 times daily. Active tamsulosin (FLOMAX) 0.4 mg capsule Take 0.8 mg by mouth daily at bedtime. Active oxyCODONE-aceta minophen (PERCOCET) 10-325 mg Tablet Take 1 to 2 Tablets by mouth every 4 hours as needed for severe pain. Max Daily Amount: 12 Tablets 80 Tablet 01/21/2018 9:49 AM GROCERY BUYER 8 Active Active Problems Problem Noted Date Diagnosed Date Traumatic complete tear of right rotator cuff Biceps tendinopathy, right 01/18/2018 Social History Tobacco Use Types Packs/Day Years Used Date Smoking Tobacco: Former Cigarettes Q uit: 1995 Smokeless Tobacco: Never Alcohol Use Standard Drinks/Week Comments No 0 (1 standard drink = 0.6 oz pur e alcohol) Sex and Gender Information Value Date Recorded Sex Assigned at Not on file Legal Sex Male 10:46 AM GROCERY BUYER Gender Identity Not on file Sexual Orientation Not on file Last Filed Vital Signs Vital Sign Reading Time Taken Comments Blood Pressure 153/60 01/21/2018 8:18 AM GROCERY BUYER Pulse 66 01/21/2018 4:27 AM GROCERY BUYER Temperature 36.3 C (97.4 F) 01/21/2018 8:18 AM GROCERY BUYER Respiratory Rate 20 01/21/2018 8:18 AM GROCERY BUYER Oxygen Saturation 93% 01/21/2018 8:18 AM GROCERY BUYER Inhaled Oxygen Concentration - - Weight 131.5 kg (290 lb) 01/21/2018 4:27 AM GROCERY BUYER Height 177.8 cm (5' 10) 01/17/2018 11:14 AM GROCERY BUYER Body Mass Index 41.61 01/17/2018 11:14 AM GROCERY BUYER Plan of Treatment Health Maintenance Due Date Last Done Comments DTAP/TDAP/TD VACCINES (1 - Tdap) 01/15/1976 COLORECTAL SCREENING 2002 Colorectal Cancer Screening 2002 FIT-DNA Q 3 years 2002 FIT/FOBT Q 1 year 2002 Flex Sig/CT Colonography Q 5 years 2002 PNEUMOCOCCAL VACCINE 50+ YEARS (1 of 1 - PCV) 01/15/20 07 ZOSTER VACCINE (1 of 2) 2007 INFLUENZA VACCINE (#1) 2024 RSV VACCINE (60+ or ) (1 - 1-dose 75+ series) 01/15/2032 Medical Devices Implanted Type Area Professor Of Food Biochemistry Device Identifier Shelf Expiration Date Model / Serial / Lot Left Hip Insurance [employer] Commercial Advance Directives For more information, please contact: [phone] * Full Code (Latest Code Status on File) Date Activated Date Inactivated Comments 01/20/2018 12:34 PM 01/21/2018 2:09 PM Care Teams Training And Development Project Leader Relationship Specialty Start Date End Date Victorino Joe MD [address] [address] PCP - General Family Practice 01/10/18
--- OUTSIDE RECORDS SUMMARY | 2024-12-28 01:01 | XMS_ITS | Clinical Summary ---
Author Organization [facility] Address [facility] [place] [address] Care Team Providers Care Accounting Teacher Name Role Phone Victorino Joe MD Primary Care Provider [phone] Encounters Date Type Department Care Team Description 11/29/2024 7:15 AM CDT - 11/29/2024 11:59 PM CDT Hospital Encounter [facility] [address] [place] [address] Shanta Burrell PA-C Discharge Disposition: Home or Self Care (Routine Discharge) 11/29/2024 Travel from Last 3 Months Social History Tobacco Use Types Packs/Day Years Used Date Smoking Tobacco: Never Assessed Sex and Gender Information Value Date Recorded Sex Assigned at Not on file Legal Sex Male 1:46 PM CDT Gender Identity Not on file Sexual Orientation Not on file Plan of Treatment Health Maintenance Due Date Last Done Comments Colorectal Cancer Screening Colonoscopy (10 Years) 1957 Hepatitis C 1975 Zoster Vaccines (1 of 2) 2007 DTaP, Tdap and Td Vaccines (2 - Td or Tdap) 07/02/2024 07/02/2014 COVID-19 Vaccine ( season) 2024 11/16/2021, 03/23/2021, 05/24/2020, Additional history exists Influenza Adult (#1) 2024 11/12/2023, 11/16/2021, 11/29/2019 RSV Immunization or 60+ Years (1 - 1-dose 75+ series) 01/15/2032 Hepatitis A Vaccines Aged Out 07/02/2014 No long er eligible based on patient's age to complete this topic Pneumococcal Vaccine: 50+ Years Completed 01/16/2023 Meningococcal B Vaccine Aged Out No l onger eligible based on patient's age to complete this topic Meningococcal Vaccine Aged Out No adeola rashmi eligible based on patient's age to complete this topic RSV Immunizations Under 20 Months Aged Out No longer eligible based on patient's age to complete this topic Procedures Procedure Name Priority Date/Time Associated Diagnosis Comments US AAA SCREENING Routine 11/29/2024 8:32 AM CDT Encounter for screening for cardiovascular disorders from Last 3 Months Results * US AAA SCREENING (11/29/2024 8:32 AM CDT) Anatomical Region Laterality Modality NA Ultrasound 11/29/2024 1:16 PM CDT Impressions 11/29/2024 1:21 PM CDT IMPRESSION: 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 No focal abdominal aortic aneurysm. Ordered By: SHANTA BURRELL Interpreted By: Willie Andres, 11/29/2024 1:16 PM Narrative 11/29/2024 1:21 PM CDT [address] [address] IMAGING STUDIES: US AAA SCREENING DATE: 11/29/2024 7:27 AM HISTORY: Encounter for screening for cardiovascular disorder 69-year-old male. History of smoking for approximately 15 years but quit 30 years ago. Coronary artery disease with two prior coronary artery stents. Abdominal aorta aneurysm screening study. COMPARISON: None at this institution. DISCUSSION: Negron scale, color doppler and pulse doppler imaging abdominal aorta. 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 Proximal abdominal aorta 2.9 x 2.9 cm. Mid abdominal aorta 2.2 x 2 cm. Normal color Doppler and pulse Doppler imaging of the mid abdominal aorta. Distal abdominal aorta 2.3 x 2.2 cm. Proximal common iliac arteries 1.3 cm diameter. Normal size inferior vena cava in the superior abdomen. Procedure Note Willie Andres MD - 11/29/[address] [address] IMAGING STUDIES: US AAA SCREENINGDATE: 11/29/2024 7:27 AM HISTORY: Encounter for screening for cardiovascular [id number] male. History of smoking for approximately 15 years but quit30 years ago. Coronary artery disease with two prior coronary arterystents. Abdominal aorta aneurysm screening study. COMPARISON: None at this institution. DISCUSSION: Negron scale, color doppler and pulse doppler imaging abdominal aorta. 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 Proximal abdominal aorta 2.9 x 2.9 cm. Mid abdominal aorta 2.2 x 2 cm. Normal color Doppler and pulse Dopplerimaging of the mid abdominal aorta. Distal abdominal aorta 2.3 x 2.2 cm. Proximal common iliac arteries 1.3 cm diameter. Normal size inferior vena cava in the superior abdomen. IMPRESSION: Atherosclerotic disease in the mid to distal abdominal aorta. No focalabdominal aortic aneurysm. Ordered By: SHANTA BURRELL Interpreted By: Willie Andres, 11/29/2024 1:16 PM Shanta Burrell PA-C ULTRASOUND Final Re sult from Last 3 Months Insurance MEDICARE PART A Member Subscriber Plan / Payer (Ef fective 2022-Present) Name:Jassi Camacho Relation to Subscriber:Self Name:Jassi Camacho Payer ID:Not on file Group ID:Not on file Type:Indemnity Address: [address] Care Teams Accounting Teacher Relationship Specialty Start Date End Date Victorino Joe MD [address] [place] [address] PCP - General FAMILY PRACTICE 11/29/24
--- OUTSIDE RECORDS SUMMARY | 2024-12-28 01:01 | XMS_ITS | Data Portability ---
Author Organization [place] [facility] [employer], Main Office Address [address] [place] [address] Care Team Providers Care G[employer] Starter Name Role Phone JULISSA WATKINS Primary Care Provider JULISSA WATKINS Referring Provider [phone] Assessment Encounter Date Assessment Date Assessment LastModified by Organization Details LastModified Time 05/14/2022 05/14/2022 HPI: Patient returns. He sees here for cortisone injection both his knees. Last shots were 3 months ago. He got approximately 2 months good relief. He has severe medial compartment osteoarthritis in both knees. He is on Xarelto chronically and therefore unable take anti-inflammatori es. He states he is taking some Aleve and I advised him that is a little bit dangerous to do this due to possible GI please and I discussed that with him. We have again shown injections today. Physical exam:67-year-old male he is alert. Has mild effusions in both knees. Range of motion is from 12-120 degrees bilaterally. He has trace edema in both lower extremities. [id number]-fw-[id number] tenderness over both medial joint lines. After ChloraPrep was used on skin 20 mg Kenalog and 3 cc of 0.5% ropivacaine was injected into both knees. Impression: 67-year-old male who has rather severe medial compartment osteoarthritis. Due to his weight at this point he is not a surgical candidate. We will see him back in 3 months repeat injection. 20 minutes spent in treatment patient more than half of this in baeg-ho-wgce conversation chepe Not available 05/14/2022 10:31:19 08/13/2022 08/13/2022 HPI: Patient returns. He is here for cortisone injection both his knees. Last shots was 3 months ago. He gets about 2 and half months of good. He is on Xarelto not able anti-inflammatori es. He has severe medial compartment osteoarthritis in both knees left a little worse than right. He wished is to continue with injections at this point. Physical exam: 67-year-old male alert pleasant. He walks well without limp or assistance. He has mild to moderate effusions in both knees. Range of motion is from 2-135 degrees bilaterally. He has multiple varicose veins in both lower extremities without edema. Mild tenderness over both medial joint lines to palpation. After ChloraPrep was used on skin 20 mg Kenalog and 3 cc of 0.5% ropivacaine was injected into both knees. Risk infection discussed. Impression: 67-year-old male who has severe medial compartment osteoarthritis in both knees. He continues do good relief from the injections. We will see him back in 3 months repeat injections. Not available 08/13/2022 10:01:59 11/19/2022 11/19/2022 HPI: Patient returns. He is here for cortisone injection both his knees. Last shots were 3 months ago. He has not right to talk about surgery yet but is getting to that point where he feels he is almost ready. He wished to have injections today. They do give him some good relief. Physical exam: 67-year-old male alert pleasant. Walks with minimal limp. He has mild effusions in both knees. Mild varus alignment to both knees. Range of motion is from 7-130 degrees bilaterally. He has no increased swelling in either lower extremity. Mild tenderness over both medial joint lines. After ChloraPrep was used on skin 20 mg Kenalog and 3 cc of 0.5% ropivacaine was injected into both knees. Risk of infection discussed. Impression: 67-year-old male who has severe medial compartment osteoarthritis in both knees with also severe patellofemoral osteoarthritis in the right knee. At this point we will see him in 3 months for repeat injection Not available 11/19/2022 10:04:12 02/18/2023 02/18/2023 HPI: Patient returns. He is here for cortisone injection both of his knees. He has severe medial compartment osteoarthritis both knees. Shots are work working a lot less at this point. He is unable take anti-inflammatori es because he is on Xarelto chronically. At this point is not a surgical candidate due to his weight. His BMI is 43 today. Advised him he is going to need to work getting his weight down, he will need to be on a 260 lb for his BMI to be under 40 before we can offer surgery to him. He wished to have another injection both knees today. Physical exam: 68-year-old male he is 290 lb today. Has mild to moderate effusions of both knees. Range motion is from 10-125 degrees bilaterally. Has mild edema in both lower extremities. He walks without assistance. He has a mild pgih-jc-shia limp. Mild tenderness over both medial joint lines palpation. ChloraPrep used on skin 20 mg Kenalog and 3 cc 0.5% ropivacaine was injected in both knees. Impression: 68-year-old male who has severe medial compartment osteoarthritis in both knees. Reminded him has to be a minimum of 3 months from time of injection till surgery. He is to work on getting his weight down. At this point seeing him back in 3 months for repeat injections. Not available 02/18/2023 10:19:59 06/03/2023 06/03/2023 HPI: Patient returns. It has been 3 months since his last cortisone injections into both of his knees. He has advanced osteoarthritis in both knees. He states that the last injections did not give him any relief. He has lost about 30 lb since we saw him last. At this point he feels he is ready to proceed with surgery. He is going to contact Dr. Mukherjee for surgical consultation I will see him back as needed. Not available 06/03/2023 11:26:08 Plan of Treatment Reminders Order Date Submit Date Provider Last Modified By Organization Details Last Modified Time Details Appointments None recorded. Lab None recorded. Referral None recorded. Procedures injection/a spiration joint/bursa (PROC) - in office procedure, administere d by provider 2023 024 [email or web address] In-Office Order, Internal Use Only DO Not Attach Compendium DO Not Attach Compendium, Do Not Delete/merge, [id number] 09:52:54 injection/a spiration joint/bursa (PROC) - in office procedure, administere d by provider 2022 023 [email or web address] In-Office Order, Internal Use Only DO Not Attach Compendium DO Not Attach Compendium, Do Not Delete/merge, [id number] 09:12:15 injection/a spiration joint/bursa (PROC) - in office procedure, administere d by provider 2022 023 In-Office Order, Internal Use Only DO Not Attach Compendium DO Not Attach Compendium, Do Not Delete/merge, [id number] 09:43:16 injection/a spiration joint/bursa (PROC) - in office procedure, administere d by provider 2022 023 [email or web address] In-Office Order, Internal Use Only DO Not Attach Compendium DO Not Attach Compendium, Do Not Delete/merge, 10:00:20 Surgeries None recorded. Imaging XR, knee 2022 023 [place] [address] [facility], [address] [place] [address], [address], [place], [address], 12:57:39 Medication Orders Kenalog 10 mg/mL suspension for injection 2023 024 [id number], [address] [place], [place], [id number], 4 14:49:53 ropivacaine (PF) 5 mg/mL (0.5 %) injection solution 2023 024 [place] [address] [facility], [address] [place], [place], [id number], 4 14:49:53 Kenalog 10 mg/mL suspension for injection 2022 023 [place] [address] [facility]4489, [address] [place], [place], [id number], 3 12:57:39 ropivacaine (PF) 5 mg/mL (0.5 %) injection solution [address] [facility]27872, [address] [place], [place], [id number], 3 12:57:39 Kenalog 10 mg/mL suspension for injection [address] [facility]00981, [address] [place], [place], [id number], 3 12:20:02 ropivacaine (PF) 5 mg/mL (0.5 %) injection solution [address] [facility]59748, [address] [place], [place], [id number], 3 12:20:02 Kenalog 10 mg/mL suspension for injection 2022 023 [facility] #13514, [address] [place], [place], [id number], 3 09:41:58 ropivacaine (PF) 5 mg/mL (0.5 %) injection solution 2022 023 [email or web address] [facility] #86473, [address] [place], [place], [id number], 3 09:42:08 Patient TargetsNo targets recorded. Patient InstructionsNo instructions recorded. Reason for Referral None Reported. Results Created Date Observation Date Name Description Value Unit Range Abnormal Flag Note LastModifiedBy Organization Detail LastModifiedTime 11/20/19 23 XR, knee No observ ation record ed. [facility] [address], [address], [place], [address], 11/19/2022 10:02:55 Result Notes None recorded. Problems Name Problem SNOMED Code Status Onset Date Resolution Date Notes Provider Name and Address Organization Details Recorded Time Radiothera py follow-up 456825412 Active Not Available [facility] 3 17:14:06 Localized, primary osteoarthr itis of the pelvic region and thigh 382554762 Active Not Available [facility] 3 17:14:06 Osteoarthr itis of hip 631547907 Active Not Available [facility] 3 17:14:06 Pain of hip region 10190852 Active Not Available [facility] 3 17:14:06 Osteoarthr itis 735967047 Active 2021 Not Available [facility] 3 17:14:06 Osteoarthr itis of knee 510644932 Active 2021 Not Available [facility] 3 17:14:06 Bilateral osteoarthr itis of knees 3307562120622 07 Active 2022 SANDY [place], [place] [employer] [facility] 3 09:58:55 Problem Notes None recorded. Medical Equipment None Reported. Allergies Allergen ID Allergen Name Allergen Category Reaction Reaction Severity Criticality Documentation Date Start Date Code Code System Note Provider Name and Address Organization Details Recorded Time 66394 Bactrim medicatio n Not available Not available Not available 04/15/2022 41507 9 RxNorm Not Available [facility] 3 17:15:36 Medications Name Sig Start Date Stop Date Status Note LastModified by Organization Details LastModified Time carvedilol 25 mg tablet TAKE 1 TABLET BY MOUTH TWICE DAILY active Not Available Not Available No t Available prednisone 10 mg tablet 10/30 completed Not Available Not Available Not Available oxybutynin chloride ER 15 mg tablet,exte nded release 24 hr TAKE 1 TABLET BY MOUTH DAILY active Not Available Not Available No t Available doxycycline hyclate 100 mg capsule TAKE 1 CAPSULE BY MOUTH TWICE DAILY active Not Available Not Available No t Available azithromyci n 250 mg tablet 11/19 completed Not Available Not Available Not Available hydrocodone 5 mg-acetamin ophen 325 mg tablet TAKE 1 TABLET BY MOUTH EVERY 4 HOURS NEEDED FOR PAIN 11/19 completed Not Available Not Available Not Available clopidogrel 75 mg tablet TAKE 1 TABLET BY MOUTH EVERY DAY 12/15 /2021 completed Not Available Not Available Not Available chlorthalid one 25 mg tablet TAKE 1 TABLET BY MOUTH EVERY DAY active Not Available Not Available No t Available tramadol 50 mg tablet TK 1 TO 2 TS PO UP TO QID PRN P 01/29 completed Not Available Not Available Not Available spironolact one 25 mg tablet TAKE 1/2 TABLET BY MOUTH EVERY DAY 11/14 completed Not Available Not Available Not Available oxycodone-a cetaminophe n 5 mg-325 mg tablet TK 1 TO 2 TS PO Q 4 H PRF PAIN 10/30 completed Not Available Not Available Not Available aspirin 325 mg tablet,cherelle yed release TK 1 T PO BID FOR 4 WEEKS 10/30 completed Not Available Not Available Not Available tamsulosin 0.4 mg capsule TAKE 1 CAPSULE BY MOUTH TWICE DAILY active Not Available Not Available No t Available Kenalog 10 mg/mL suspension for injection in office 2023 active [facility]: 0003- 0494- 20 Not Available Not Available Not Available hydrocodone 7.5 mg-acetamin ophen 325 mg tablet TAKE 1 TABLET BY MOUTH EVERY 6 HOURS NEEDED FOR PAIN active Not Available Not Available No t Available nitroglycer in 0.4 mg sublingual tablet DISSOVLE 1 TABLET UNDER THE TONGUE DIRECTED NEEDED FOR CHEST PAIN. MAY REPEAT EVERY 5 MINUTES UP TO 3 DOSES active Not Available Not Available No t Available Xylocaine 20 mg/mL (2 %) injection solution In office injection administe red by the provider 08/15 completed Not Available Not Available Not Available aspirin 81 mg chewable tablet CHEW AND SWALLOW 1 TABLET BY MOUTH DAILY. 11/14 completed Not Available Not Available Not Available diclofenac sodium 75 mg tablet,cherelle yed release TK ONE T PO BID 10/30 completed Not Available Not Available Not Available metoprolol succinate ER 25 mg tablet,exte nded release 24 hr TAKE 1 TABLET BY MOUTH EVERY DAY active Not Available Not Available No t Available methylpredn isolone 4 mg tablets in a dose pack FOLLOW PACKAGE DIRECTION S 08/13 completed Not Available Not Available Not Available fluticasone propionate 50 mcg/actuati on nasal spray,suspe nsion SHAKE WELL AND SPRAY 1 SPRAY IEN BID 10/30 completed Not Available Not Available Not Available Hibiclens 4 % topical liquid PERFORM TOTAL BODY WASH QD FOR 5 DAYS 10/30 completed Not Available Not Available Not Available Bactroban Nasal 2 % ointment CAROL ANN TO BOTH NOSTRILS BID FOR 5 DAYS 10/30 completed Not Available Not Available Not Available enoxaparin 30 mg/0.3 mL subcutaneou s syringe INJECT 30MG UNDER THE SKIN EVERY 12 HOURS 10/30 completed Not Available Not Available Not Available ezetimibe 10 mg tablet TAKE 1 TABLET BY MOUTH EVERY DAY 01/29 completed Not Available Not Available Not Available rosuvastati n 20 mg tablet TAKE 1 TABLET BY MOUTH EVERY DAY 10/30 completed Not Available Not Available Not Available lidocaine (PF) 10 mg/mL (1 %) injection solution In office injection administe red by the provider 05/16 completed [facility]: 0409- 4276- 17 Not Available Not Available Not Available lidocaine (PF) 5 mg/mL (0.5 %) injection solution In office injection administe red by the provider 02/12 completed Not Available Not Available Not Available ropivacaine (PF) 5 mg/mL (0.5 %) injection solution in office 2023 active Not Available Not Available Not Avai lable Jardiance 10 mg tablet TAKE 1 TABLET BY MOUTH EVERY DAY active Not Available Not Available No t Available OxyContin 10 mg tablet,kate h resistant,e xtended release TK 1 T PO BID 10/30 completed Not Available Not Available Not Available Entresto 97 mg-103 mg tablet TAKE 1 TABLET BY MOUTH TWICE DAILY active Not Available Not Available No t Available Entresto 49 mg-51 mg tablet TAKE 1 TABLET BY MOUTH TWICE DAILY 08/13 completed Not Available Not Available Not Available Entresto 24 mg-26 mg tablet TAKE 1 TABLET BY MOUTH TWICE DAILY 08/13 completed Not Available Not Available Not Available Xarelto 2.5 mg tablet TAKE 1 TABLET BY MOUTH TWICE DAILY active Not Available Not Available No t Available ID NOW COVID-19 Test Kit TEST DIRECTED TODAY 11/14 completed Not Available Not Available Not Available Vitals Date Recorded Body height Body mass index (BMI) Body weight Provider Name and Address Organization Details Last Updated DateTime 02/18/2023 175.26 cm 43.1 kg/m2 945599.97 g Helga Kerr [facility] 02/18/2023 09:55:44 Date Recorded Body height Provider Name an d Address Organization Details Last Updated DateTime 05/14/2022 175.26 cm Helga Kerr [facility] 05/14/2022 09:58:35 Date Recorded Body height Provider Name an d Address Organization Details Last Updated DateTime 06/03/2023 175.26 cm Cathi Pablo [facility] 06/03/2023 10:53:09 Date Recorded Body height Provider Name an d Address Organization Details Last Updated DateTime 08/13/2022 175.26 cm Helga Kerr [facility] 08/13/2022 09:41:40 Date Recorded Body height Provider Name an d Address Organization Details Last Updated DateTime 11/19/2022 175.26 cm Helga Kerr [facility] 11/19/2022 09:10:43 Social History None recorded. Functional Status Question Answer Note LastModified by Organizat ion Details LastModified Time What is your level of alcohol consumption? None [id number] Information not available 04/15/2022 Mental Status None recorded. Family History Relationship Description Onset Age of this Age Resolved Age Notes LastModified by Organization Details LastModified Time Father Heart disease [id number] Not available 04/15/2022 17:13:09 Father Hypertensive disorder [id number] Not available 04/15/2022 17:13:10 Mother Hypertensive disorder [id number] Not available 04/15/2022 17:13:10 Mother Diabetes mellitus [id number] Not available 04/15/2022 17:13:10 Medical History Condition Response BLINDNESS N KIDNEY STONES N MRSA N CARPAL TUNNEL SYNDROME N LUNG DISEASE/DISORDER N HISTORY OF DRUG ABUSE N RADIATION / CHEMOTHERAPY N COPD N SPORTS INJURY N ANKLE PAIN N BLOOD DISEASES N SCHIZOPHRENIA N SHINGLES N SHOULDER PAIN N DEPRESSION (INCLUDING POST ) N BOWEL PROBLEMS N STROKE/TIA N ULCERS N KNEE PAIN N BENIGN PROSTATIC HYPERPLASIA N OBESITY N GERD/NAUSEA N ANEURYSM N URINARY/BLADDER/KIDNEY PROBLEMS N CORONARY ARTERY DISEASE (CAD) N ADDICTION CONCERNS N USE OF BLOOD THINNERS Y SKIN PROBLEMS N EMPHYSEMA N MUSCLE,JOINT OR BONE PROBLEMS N DVT N STOMACH ULCERS N BLOOD CLOTS N USE OF NSAIDS Y CONCUSSION OR SPINAL TRAUMA N NEUROPATHY N AIDS/HIV N FRACTURES N HYPERTENSION N ELBOW PAIN N TOURETTE'S N Metal allergy N ANXIETY DISORDER N BLOOD TRANSFUSION N ANEMIA/BLOOD DISORDER N BIPOLAR DISORDER N BRONCHITIS N OSTEOARTHRITIS N TUBERCULOSIS N FOOT PROBLEM N HEART VALVE DISORDERS N ALLERGIES/HAYFEVER N SOFT TISSUE INJURY N INFECTIOUS DISEASE N HEART ARRHYTHMIA N INSOMNIA N HIGH CHOLESTEROL / HYPERLIPIDEMIA N RHEUMATOID ARTHRITIS N EDEMA N CHRONIC PAIN SYNDROME N CAROTID BLOCKAGE N BACK / NECK PROBLEMS N HAVE YOU BEEN HOSPITALIZED OR SEEN IN [facility] IN THE PAST YEAR ? N BURSITIS N HERNIATED DISC N DIALYSIS N FIBROMYALGIA N OSTEOPOROSIS N ARTHRITIS Y NO SIGNIFICANT PAST MEDICAL HISTORY N PERIPHERAL NEUROPATHY N DIABETES, TYPE N HEARTBURN / REFLUX N HEPATITIS / LIVER DISEASE N GOUT N ALZHEIMER'S DISEASE N SLEEP DISORDER N HERPES N HEADACHES/MIGRAINES N SEIZURES/EPILEPSY N VASCULAR DISEASE Y Blood Disorder N HIP PAIN N DIZZINESS N HEAD TRAUMA OR INJURY N HEART DISEASE/HEART PROBLEMS N MULTIPLE SCLEROSIS N CANCER: SPECIFY N CARDIAC ARRHYTHMIA N ANESTHESIA COMPLICATIONS N ATRIAL FIBRILLATION N AUTOIMMUNE DISEASE N Past Encounters Encounter ID Performer Location Encounter Start Date Encounter Closed Date Diagnosis/Indication Diagnosis SNOMED-CT Code Diagnosis ICD10 Code Diagnosis IMO Codes Diagnosis Note [id number] Tyshawn Mukherjee MD [facility] [place] [address] [place] [address] 10/30/2020 00:00:00 11/04/2020 15:11:08 [id number] [address]her[address] [facility] [place] [address] [place] [address] 01/29/2021 00:00:00 01/29/2021 09:27:10 [id number] Tyshawn Mukherjee MD [facility] [place] [address] [place] [address] 05/16/2021 00:00:00 05/16/2021 09:15:00 [id number] [address] [facility] [place] [address] [place] [address] 08/15/2021 00:00:00 08/15/2021 08:58:40 [id number] [address] [facility] [place] [address] [place] [address] 11/14/2021 00:00:00 11/14/2021 09:51:40 [id number] [address] [facility] [address] 02/12/2022 00:00:00 02/12/2022 09:54:45 [id number] Tyshawn Mukherjee MD [facility] [address] 05/14/2022 09:43:09 05/14/2022 10:34:48 Bilateral osteoarthritis of knees 0796837256 60900 M17.0 [id number] Tyshawn Mukherjee MD [facility] [address] 08/13/2022 09:36:44 08/13/2022 10:05:27 Bilateral osteoarthritis of knees 0166345903 85674 M17.0 [id number] Tyshawn Mukherjee MD [place] [address] 11/19/2022 08:55:40 11/19/2022 10:04:45 Bilateral osteoarthritis of knees 5024656199 98268 M17.0 [id number] Tyshawn Mukherjee MD [address] [address] 02/18/2023 09:27:08 02/18/2023 10:30:27 Bilateral osteoarthritis of knees 0427907450 80315 M17.[id number] [facility]_[address] [address] 06/03/2023 10:49:19 06/03/2023 11:51:52 Bilateral osteoarthritis of knees 5513883485 37276 M17.0 Health Concerns Section Related Observation LastModified by Organization Detai ls LastModified Time None Recorded Concern Status LastModified by Organization Details LastModified Time None Recorded Advance Directives Directive None Recorded Payers Insurance Date Sequence Insurance Name Policy Number Policy [place] Covered Member ID [place] Member ID Guarantor Name 06/08/2023 1 [employer] (PPO) [id number] Jassi Camacho [id number] Jassi Camacho
[2024-12-28 08:11] VITALS: BP 135/73; PULSE 75; RESP 18; TEMP 36.1; O2SAT 97; BMI 41.6
[2024-12-28] MEDS: LACTATED RINGERS 1,000 ML 150 ML IV CONT (08:22)
--- NOTE | 2024-12-28 08:42 | WPDANESEPPF ---
Anes - Initial Pre Proc Eval Procedure: Operation Date: 12/28/24 09:30 Proposed Procedures p Screening Colonoscopy - Marcelo Schulz MD Date/Time: 12/28/24 08:42 Surgeon: Marcelo Schulz MD Pre Op Diagnosis: Screening Patient Data Age: 69 Gender: M Height: 1.78 m Weight: 131.7 kg Last Vital Signs Temp 36.1 C L 12/28/24 08:11 Pulse 75 12/28/24 08:11 Resp 18 12/28/24 08:11 BP 135/73 12/28/24 08:11 Pulse Ox 97 12/28/24 08:11 O2 Del Method Room Air 12/28/24 08:11 Allergies Allergy/AdvReac Type Severity Reaction Status Date / Time sulfamethoxazole Allergy Severe FEVER & Verified 12/28/24 08:09 CHILLS trimethoprim Allergy Severe FEVER & Verified 12/28/24 08:09 CHILLS Home Medications ?Medication ?Instructions ?Recorded ?Confirmed ?Type nitroglycerin 0.4 mg sublingual 0.4 mg sublingual Q5M PRN Chest 04/09/20 12/18/24 History tablet Pain tamsulosin 0.4 mg capsule See Rx Instructions .Route 06/18/21 12/28/24 Rx .COMPLEX #180 caps empagliflozin 10 mg tablet 10 mg PO DAILY 08/13/23 12/28/24 History (Jardiance) oxybutynin chloride 15 mg 15 mg PO DAILY 08/13/23 12/28/24 History tablet,extended release 24 hr sacubitril 97 mg-valsartan 103 mg 1 tablet PO BID 08/13/23 12/28/24 History tablet (Entresto) aspirin 81 mg tablet,delayed 81 mg PO DAILY 10/21/23 12/28/24 History release inclisiran 284 mg/1.5 mL 284 mg subcut [id number] 10/22/23 12/18/24 History subcutaneous syringe (Leqvio) clopidogrel 75 mg tablet 75 mg PO DAILY 10/30/24 12/28/24 History ranolazine 500 mg tablet,extended 500 mg PO Q12H 10/30/24 12/28/24 History release,12 hr semaglutide (weight loss) 0.5 0.5 mg subcut WEEKLY 09/15/25 11/13/25 History mg/0.5 mL subcutaneous pen injector Laboratory Tests 12/28/24 08:20 POC Capillary Glucose 96 mg/dl (65-105) Patient hx anesthesia problems: none Family hx anesthesia problems: none Results Review: All pre-operative results and documents have been reviewed as part of the pre-operative evaluation. [facility] Past Medical History Medical History Systolic CHF, chronic Psoriasis Diabetes Diastolic CHF History of heart attack BPH (benign prostatic hyperplasia) Chronic anticoagulation Obstructive sleep apnea CPAP intolerant CAD (coronary artery disease) Hypertension with heart disease Eczematous dermatitis Bilateral varicoceles Bilateral hydrocele Essential (primary) hypertension Surgical History Surgical History S/P percutaneous transluminal angioplasty (STATION BAGGAGE AGENT) with stent placement History of shoulder surgery (2020) right History of total left hip arthroplasty S/P laparoscopic cholecystectomy 06/12/22 S/P coronary artery stent placement (11/2019) x2 Family History Family History Father Hypertension Heart disease Mother Family history of diabetes mellitus in first degree relative Unknown No problems noted. Social History Social History (Updated 10/30/24 @ 14:36 by Yomaira Sarkar) Years smoked: 20 Smoking status: Former smoker Tobacco type: cigarettes Second hand tobacco smoke exposure: No Smoking end date: 02/15/93 Alcohol intake: former Alcohol use details: QUIT 1991 Substance use: never Substance use type: does not use Do You Feel Safe in your Home?: Yes Lack of Transportation: No Lack of Food: Never True Current Housing: I Have Housing Concerned About Future Housing: No Difficulty Paying Gas/Electric Bills: No Difficulty Paying for Meds: No Currently Unemployed: No Education: High School Diploma/GED Difficulty w/ Childcare or Family Care: No Living arrangements: alone Occupation/Education: occupation Additional occupation/education comments: [employer] Gender identity (if verbalized by the patient): Male Sexual Orientation (if Verbalized by the Patient): Straight or Heterosexual Anes - Eval Final PreProcedure Day of Procedure 12/28/24 08:42 Patient weight: morbidly obese Heart: regular rate and rhythm Lungs: clear to auscultation Airway: Mallampati scale class II Neurological: alert and oriented Last oral intake: >/= 8 hours ASA classification: IV Emergent: no Anesthetic plan: proceed Anesthesia type and monitoring: general GIVS and standard monitoring Results Review: All pre-operative results and documents have been reviewed as part of the pre-operative evaluation. Informed Consent: The patient's anesthetic plan and its attendant risks and benefits were discussed with the patient/family/POA. Questions were solicited and answers provided to the satisfaction of the patient/family/POA.
--- NOTE | 2024-12-28 09:32 | PM.IMHP ---
H&P: HPI History of Present Illness Date/Time: 12/28/24 09:32 Chief Complaint: Screening colonoscopy Narrative: This is the patient's 2nd screening colonoscopy. There are no GI symptoms and there is no family history of colorectal cancer. Review of Systems Review of Systems: All systems reviewed & are unremarkable except as noted in HPI and below PMFSH Past Medical History Medical History Systolic CHF, chronic Psoriasis Diabetes Diastolic CHF History of heart attack BPH (benign prostatic hyperplasia) Chronic anticoagulation Obstructive sleep apnea CPAP intolerant CAD (coronary artery disease) Hypertension with heart disease Eczematous dermatitis Bilateral varicoceles Bilateral hydrocele Essential (primary) hypertension Surgical History Surgical History S/P percutaneous transluminal angioplasty (OPTOMETRIC COORDINATOR) with stent placement History of shoulder surgery (2020) right History of total left hip arthroplasty S/P laparoscopic cholecystectomy 06/12/22 S/P coronary artery stent placement (11/2019) x2 Family History Family History Father Hypertension Heart disease Mother Family history of diabetes mellitus in first degree relative Unknown No problems noted. Social History Social History (Updated 10/30/24 @ 14:36 by Yomaira Sarkar) Years smoked: 20 Smoking status: Former smoker Tobacco type: cigarettes Second hand tobacco smoke exposure: No Smoking end date: 02/15/93 Alcohol intake: former Alcohol use details: QUIT 1991 Substance use: never Substance use type: does not use Do You Feel Safe in your Home?: Yes Lack of Transportation: No Lack of Food: Never True Current Housing: I Have Housing Concerned About Future Housing: No Difficulty Paying Gas/Electric Bills: No Difficulty Paying for Meds: No Currently Unemployed: No Education: High School Diploma/GED Difficulty w/ Childcare or Family Care: No Living arrangements: alone Occupation/Education: occupation Additional occupation/education comments: [employer] Gender identity (if verbalized by the patient): Male Sexual Orientation (if Verbalized by the Patient): Straight or Heterosexual Meds Home Medications and Allergies Home Medications ?Medication ?Instructions ?Recorded ?Confirmed ?Type nitroglycerin 0.4 mg sublingual 0.4 mg sublingual Q5M PRN Chest 04/09/20 12/18/24 History tablet Pain tamsulosin 0.4 mg capsule See Rx Instructions .Route 06/18/21 12/28/24 Rx .COMPLEX #180 caps empagliflozin 10 mg tablet 10 mg PO DAILY 08/13/23 12/28/24 History (Jardiance) oxybutynin chloride 15 mg 15 mg PO DAILY 08/13/23 12/28/24 History tablet,extended release 24 hr sacubitril 97 mg-valsartan 103 mg 1 tablet PO BID 08/13/23 12/28/24 History tablet (Entresto) aspirin 81 mg tablet,delayed 81 mg PO DAILY 10/21/23 12/28/24 History release inclisiran 284 mg/1.5 mL 284 mg subcut [id number] 10/22/23 12/18/24 History subcutaneous syringe (Leqvio) clopidogrel 75 mg tablet 75 mg PO DAILY 10/30/24 12/28/24 History ranolazine 500 mg tablet,extended 500 mg PO Q12H 10/30/24 12/28/24 History release,12 hr semaglutide (weight loss) 0.5 0.5 mg subcut WEEKLY 10/30/24 12/28/24 History mg/0.5 mL subcutaneous pen injector Allergies Allergy/AdvReac Type Severity Reaction Status Date / Time sulfamethoxazole Allergy Severe FEVER & Verified 12/28/24 08:09 CHILLS trimethoprim Allergy Severe FEVER & Verified 12/28/24 08:09 CHILLS Vital Signs Vital Signs - 24 hr 12/28/24 08:11 Temperature 97 F L Pulse Rate 75 Respiratory Rate 18 Blood Pressure 135/73 Pulse Oximetry 97 Oxygen Delivery Room Air Exam Const: General: cooperative and healthy appearing Resp: Effort & Inspection: normal respiratory effort and able to speak in complete sentences Auscultation: clear to auscultation bilaterally Cardio: Rate: regular rate Rhythm: regular rhythm GI: Inspection: normal to inspection GI Palp: No No hepatosplenomegaly present Auscultation: normal bowel sounds Rectal Exam: deferred Skin: General skin exam: normal color Psych: Appearance: grossly normal Mental Status: mental status grossly normal Assessment and Plan Assessment and plan (1) Encounter for screening colonoscopy: Code(s): Z12.11 - Encounter for screening for malignant neoplasm of colon Status: Acute Assessment and Plan: The patient is deemed a good candidate for the procedure. Consent signed. Will proceed.
--- NOTE | 2024-12-28 10:13 | S_PTH ---
PATIENT: Jassi Camacho LOC: [facility] Owusu#:[id number] AGE/SX: 69/M ROOM: RE12/28/[address]: Marcelo Schulz MD : 1955 BED: DIS: 12/28/2024 SPEC #: [id number] RECD: 12/28/24 11:39 STATUS: EVETTE REQ #: [id number] CHARLY: 12/28/24 10:[address]: Marcelo Schulz DEPT: [facility] Surgical RECD BY: Sushma Dean ENTERED: 12/28/24 11:39 SP TYPE: Surgical OTHR DR: Victorino Joe MD Tissues: A - Colon Polypectomy Procedures: Hematoxylin and Eosin Stain Gross and Microscopic Level 4
[2024-12-28 10:17] VITALS: BP 86/54; PULSE 66; RESP 16; O2SAT 96
[2024-12-28] MEDS: METHYLENE BLUE 0.5% INJ 10 ML AMPULE XX (10:22)
[2024-12-28 10:27] VITALS: BP 100/57; PULSE 71; RESP 25; O2SAT 96
[2024-12-28 10:37] VITALS: BP 108/61; PULSE 70; RESP 22; O2SAT 97
== END 2024-12-28 10:50 | disposition home or self-care (01) ==
PROVIDERS: PCP Family Medicine; Visit Provider Internal Medicine Gastroenterology
PROC: 0DJD8ZZ Inspection of Lower Intestinal Tract, Via Natural or Artificial Opening Endoscopic (ICD-10-PCS; CPT 45378; principal; 2024-12-28 09:30)
DX: Z12.11 Encounter for screening for malignant neoplasm of colon (principal); D12.0 Benign neoplasm of cecum; K64.8 Other hemorrhoids; K57.30 Diverticulosis of large intestine without perforation or abscess without bleeding; I11.0 Hypertensive heart disease with heart failure; I50.42 Chronic combined systolic (congestive) and diastolic (congestive) heart failure; E11.9 Type 2 diabetes mellitus without complications; N40.0 Benign prostatic hyperplasia without lower urinary tract symptoms; G47.33 Obstructive sleep apnea (adult) (pediatric); I25.10 Atherosclerotic heart disease of native coronary artery without angina pectoris; I25.2 Old myocardial infarction; L40.9 Psoriasis, unspecified; L30.9 Dermatitis, unspecified; E66.01 Morbid (severe) obesity due to excess calories; Z68.41 Body mass index [BMI] 40.0-44.9, adult; Z79.01 Long term (current) use of anticoagulants; Z79.84 Long term (current) use of oral hypoglycemic drugs; Z79.82 Long term (current) use of aspirin; Z79.02 Long term (current) use of antithrombotics/antiplatelets; Z79.85 Long-term (current) use of injectable non-insulin antidiabetic drugs; Z98.890 Other specified postprocedural states; Z90.49 Acquired absence of other specified parts of digestive tract; Z95.5 Presence of coronary angioplasty implant and graft; Z87.891 Personal history of nicotine dependence; Z82.49 Family history of ischemic heart disease and other diseases of the circulatory system
CPT/HCPCS: 45390; 82948; 88305; J2003; J2704; J7120; Q9968